=== PATIENT | male | born 1975 | race Two or more races ===

== ENCOUNTER 2022-04-20 11:32 | Outpatient (REF) | payer BC, SELFPAY ==
--- NOTE | ~2022-04-20 | XR_ITS ---
EXAMINATION: XR cervical spine 2V CLINICAL INFORMATION: Pain COMPARISON: None TECHNIQUE: 3 views of the cervical spine were obtained. FINDINGS: The cervical spine is visualized to the level of C6-C7 on the lateral view. Minimal retrolisthesis of C5 on C6. Vertebral body heights are maintained. Mild degenerative disc disease at C5-C6, manifested by loss of disc space height. Lateral masses of C1 are well aligned on C2. Visualized portion of the dens is intact. No prevertebral soft tissue swelling. XR/XR cervical spine 2V IMPRESSION: * Mild spondylosis of the cervical spine, as above detailed. Spondylolisthesis, as above detailed.
== END 2022-04-20 11:33 | disposition home or self-care (01) ==
LOC: HO.HMGCX 11:32
PROVIDERS: PCP Nurse Practitioner Family; Visit Provider Nurse Practitioner Family
DX: M54.2 Cervicalgia (principal)
CPT/HCPCS: 72040

== ENCOUNTER 2022-05-27 07:50 | Outpatient (REF) | payer BC, SELFPAY ==
[2022-05-27 11:25] LABS: MANUAL DIFF FLAG NO
[2022-05-27 11:33] LABS: Appearance Urine Turbid; Color Urine Yellow; Glucose Urine UA Negative (Negative); Leukocyte Esterase Urine Negative (Negative); Nitrite Urine Negative (Negative); PH 5.5 (5.0-9.0); Specific Gravity - Urine 1.025 (1.005-1.025); Urine Blood Negative (Negative); Urine Ketones Negative (Negative); Urine Protein Negative (Neg-Trace)
[2022-05-27 11:52] LABS: Basophils Absolute Auto 0.1 X10*3/uL (0.0-0.2); Basophils Percent Auto 0.9 % (0-2); Eosinophils Absolute Auto 0.3 X10*3/uL (0.0-0.4); Eosinophils Percent Auto 5.1 % (0-4); Hemoglobin 14.8 g/dl (14.0-18.0); Imm Gran Abs Auto 0.01 X10*3/uL (0.00-0.03); Imm Gran Pct Auto 0.2 % (0.0-0.4); Lymphocytes Absolute Auto 2.4 X10*3/uL (1.2-4.9); Mean Corpuscular HGB Conc 33.6 g/dl (31.0-36.0); Mean Corpuscular Hemoglobin 29.7 pg (27.0-33.0); Mean Corpuscular Volume 88.2 fL (80.0-98.0); Mean Platelet Volume 10.1 fL (9.4-12.4); Monocytes Absolute Auto 0.5 X10*3/uL (0.1-1.2); Monocytes Percent Auto 9.1 % (2-11); Neutrophils Absolute Auto 2.4 x10*3/uL (2.0-8.3); Neutrophils Percent Auto 42.7 % (45-73); Platelet Count 306 X10*3/uL (160-400); Red Blood Count 4.99 X10*6/uL (4.60-5.80); Red Cell Distribution Width 12.3 % (11.0-16.0); White Blood Count 5.7 X10*3/uL (4.8-10.8)
[2022-05-27 12:39] LABS: Alanine Aminotransferase 54 U/L (0-40); Albumin Level 4.1 g/dL (3.5-5.0); Alkaline Phosphatase 52 U/L (39-117); Anion Gap 12 (12-20); Aspartate Amino Transferase 28 U/L (5-37); Bilirubin Total 1.1 mg/dL (0.0-1.0); Blood Urea Nitrogen 17 mg/dL (9-16); Calcium 9.1 mg/dL (8.4-10.2); Carbon Dioxide 24 mmol/L (22-29); Chloride 107 mmol/L (96-108); Cholesterol 209 mg/dL; Estimated Glomerular Filt Rate > 60; Glucose Fasting 94 mg/dL (60-99); HDL Cholesterol 51 mg/dL; LDL Cholesterol Calculated 142 mg/dl; Potassium 4.2 mmol/L (3.3-5.1); Sodium 139 mmol/L (135-145); Total Protein 6.9 g/dL (6.5-8.0); Triglycerides 82 mg/dL
== END 2022-05-27 07:51 | disposition home or self-care (01) ==
LOC: HO.HMGCLDS 07:50
PROVIDERS: PCP Nurse Practitioner Family; Visit Provider Nurse Practitioner Family
DX: Z00.00 Encounter for general adult medical examination without abnormal findings (principal); R74.8 Abnormal levels of other serum enzymes
CPT/HCPCS: 36415; 80053; 80061; 81003; 84443; 85025

== ENCOUNTER → 2022-06-24 14:38 | Outpatient (BNVA) | payer BC, SELFPAY | PROVIDERS: PCP Nurse Practitioner Family; Visit Provider Nurse Practitioner Family | DX: Z13.89 Encounter for screening for other disorder (principal) ==

== ENCOUNTER 2022-09-05 12:27 | Day surgery (SDC) | payer BC, MEDICAID, SELFPAY ==
[2022-09-01 10:44] VITALS: BMI 28.4
--- NOTE | 2022-09-02 10:50 | HO.ANESPROP2 ---
Documented by User: Hortencia Arce NP 09/02/22 10:50 HPI - Anesthesia Eval Consult details Narrative: 47yo M for Penile Condylomata Fulguration PMFSH Active Problems Active Problems: All Active Problems (Updated 09/01/22 @ 10:41 by Italia Moses RN) Physical exam (Acute) Genital warts (Acute) Screening for colon cancer (Acute) Cervical pain (neck) (Acute) Elevated liver enzymes (Acute) Past Medical History Medical History (Updated 09/01/22 @ 10:41 by Italia Moses RN) Cervical pain (neck) Genital warts Surgical History Surgical History (Updated 09/01/22 @ 10:44 by Italia Moses RN) Surgical history unknown Social History Social History Housing: Apartment Patient Tobacco Use Status: Former Tobacco user Quit Date: 6 months ago Tobacco use type: Cigarette e-Cigarette/Vaping Use: Never Used Second Hand Smoke Exposure: No Use of substances other than those prescribed or required for medical reasons: No Are you DNR?: No Advance Directives: No Advance Directives Information Provided: Yes service: No Current occupational status: employed Current occupation: [employer] Current occupational exposures/hazards: No Cognitive needs: No Hearing needs: No Vision needs: No Meds Allergies Allergy/AdvReac Type Severity Reaction Status Date / Time No Known Allergies Allergy Verified 06/25/22 23:05 Home Medications Medication Instructions Recorded Confirmed Last Taken Type No Known Home Meds 06/24/22 09/01/22 Unknown History Exam Exam Date and Time: September 02, 2022 1050 Height,Weight and Vital Signs: Height 5 ft 11 in Weight 92.533 kg Pertinent Lab Results Pertinent Lab Results: Laboratory Tests 05/27/22 05/27/22 08:00 08:00 WBC 5.7 Hgb 14.8 Hct 44.0 Plt Count 306 Sodium 139 Potassium 4.2 Chloride 107 Carbon Dioxide 24 BUN 17 H Creatinine 0.82 Assessment and Plan Assessment Anesthesia Assessment: Chart Reviewed Documented by User: Devonte Porras MD 09/05/22 15:53 PMFSH Past Medical History Medical History (Updated 09/01/22 @ 10:41 by Italia Moses RN) Cervical pain (neck) Genital warts Family History Family history of problems with anesthesia: No Surgical History Surgical History (Updated 09/01/22 @ 10:44 by Italia Moses RN) Surgical history unknown History of Problems with Anesthesia: No Social History Social History Housing: Apartment Patient Tobacco Use Status: Former Tobacco user Quit Date: 6 months ago Tobacco use type: Cigarette e-Cigarette/Vaping Use: Never Used Second Hand Smoke Exposure: No Use of substances other than those prescribed or required for medical reasons: No Are you DNR?: No Advance Directives: No Advance Directives Information Provided: Yes service: No Current occupational status: employed Current occupation: [employer] Current occupational exposures/hazards: No Cognitive needs: No Hearing needs: No Vision needs: No Meds Allergies Allergy/AdvReac Type Severity Reaction Status Date / Time No Known Allergies Allergy Verified 06/25/22 23:05 Home Medications Medication Instructions Recorded Confirmed Last Taken Type No Known Home Meds 06/24/22 09/01/22 Unknown History Exam Airway Mallampati Class: II TM Dist: >3cm Neck ROM: Full Heart: ok Lungs: ok Assessment and Plan Assessment Anesthesia Assessment: Anesthesia Plan Discussed Final Anesthetic Review Family History of Problems with Anesthesia: No History of Problems with Anesthesia: No NPO: Yes ASA Class: II Final Preanesthetic Review: No Changes in Pt Med Stat, Meds/Allgs Chart Reviewed, Consent Obtained/Reviewed and Anes Risks/Benef Reviewed Patient Risk: Low Procedure Risk: Low Anesthetic Plan Anesthetic Plan: GA and Agree w/ Assess. and Plan Disposition: Standard PACU
[2022-09-05 13:12] VITALS: BP 143/96; PULSE 84; RESP 18; TEMP 36.1; O2SAT 97
[2022-09-05] MEDS: Lactated Ringers 1,000 ML 100 ML IVCONT (13:24)
--- NOTE | 2022-09-05 15:01 | P.HPSUR_ITS ---
Pre-Procedural Eval Section A Date of Service: 09/05/22 The patient is an INPATIENT: No Changes since office visit: No Cold of Flu in the past 2 weeks, No New Medical Problems, No Changes in Medication and No Patient answered all questions The History & Physical has been completed within 30 days and I have reviewed it.: No Section B Chief Complaint: Anogenital (venereal) warts Details of Present Illness: penile warts Relevant Family History (Specify if Yes): No Relevant Social History: None Present Medications: see Short Stay Collaborative assessment Medical History: No relevant PMH History of Previous Operations: No relevant previous surgery Allergies: Allergies Allergy/AdvReac Type Severity Reaction Status Date / Time No Known Allergies Allergy Verified 06/25/22 23:05 Review of Systems Sugical H&P ROS: Negative: Constitution, Cardiovascular, Respiratory, Neurological, Psychiatric, Hem-Onc, Allergic/Immunologic, Gastrointestinal, Genitourinary, Musculoskeletal, Integumentary, Endocrine and Eyes/Ears/Nose/Throat Exam Surgical H&P Exam: Normal: HEENT, Normal: Heart, Normal: Lungs, Normal: Extremit ies, Normal: Abdomen, Normal: Skin and Normal: Neurological Plan Diagnosis/Plan: Unchanged ( laser of penile lesions) I have reviewed the history and physical and performed a pertinent physical examination on my patient. No changes have occurred unless specified. Time Spent With Patient Time: Total time managing care of this patient today ____ minutes.
[2022-09-05 16:14] VITALS: BP 124/94; PULSE 84; RESP 16; TEMP 36.6; O2SAT 96
[2022-09-05 16:19] VITALS: BP 135/96; PULSE 81; RESP 14; O2SAT 96
[2022-09-05 16:24] VITALS: BP 128/94; PULSE 84; RESP 12; O2SAT 97
[2022-09-05 16:29] VITALS: BP 126/97; PULSE 77; RESP 13; O2SAT 98
[2022-09-05 16:46] VITALS: BP 123/85; PULSE 71; RESP 16; TEMP 36.5; O2SAT 97
--- NOTE | 2022-11-11 12:40 | W.PM.OPN ---
Operative Note Operative Note Date of Service: 09/05/22 Narrative: PreOperative Diagnosis: Genital warts Post Operative Diagnosis: Genital warts Procedure: CO2 laser of 7 lesions up to 12mm on left side of the penis Surgeon: Dr Philip Samaniego Anesthesia: General Indications for procedure: Genital warts on left-sided base of penis Procedure: After informed consent was verified the patient was brought to the operating room and placed in a supine position. Anesthesia was administered per protocol. The patient was prepped and draped in a sterile fashion. Safety pause time-out was performed. Antibiotics being given. Using the CO2 laser the 12 mm lesion in the basal left side of the penis was treated. There were noted to be 6 satellite lesions each up to 4-5 mm. These were all treated as well. Pathology: None Drains:
== END 2022-09-05 17:09 | disposition home or self-care (01) ==
PROVIDERS: PCP Nurse Practitioner Family; Visit Provider Urology
PROC: (CPT 54055; principal; 2022-09-05 14:50)
DX: A63.0 Anogenital (venereal) warts (principal); Z87.891 Personal history of nicotine dependence
CPT/HCPCS: 54057; J3010

== ENCOUNTER → 2022-09-05 12:27 | Outpatient (BNV) | payer BC, SELFPAY | PROVIDERS: PCP Nurse Practitioner Family; Visit Provider Urology | DX: A63.0 Anogenital (venereal) warts (principal) | CPT/HCPCS: 54057 ==

== ENCOUNTER 2022-10-20 10:29 | Outpatient (AMB) | payer BC, SELFPAY ==
--- NOTE | 2022-10-20 10:46 | MHC.OFFVIS ---
Intake Intake Visit Reasons: 6 week (wart removal) Intake Note: Patient is present for Follow Up Urology Med: none Antibiotic Allergy: None Blood Thinner: None Pharmacy: [facility] Allergies No Known Allergies Allergy (Verified 10/20/22 10:47) HPI HPI Comments History of Present Illness Details Artur is a pleasant male. He is a patient Dr. Israel. He is seen for the following urologic conditions - genital warts Postprocedure well-healed Genital warts Prior shaving a general area Had outbreak of 5-7 small to moderate lesions 1 cm lesion at base on left side Underwent laser with good effect Continue to monitor May benefit from topical therapy PFSH Medical History Cervical pain (neck) Genital warts Surgical History Surgical history unknown Social History Housing: Apartment Patient Tobacco Use Status: Former Tobacco user Quit Date: 6 months ago Tobacco use type: Cigarette e-Cigarette/Vaping Use: Never Used Second Hand Smoke Exposure: No service: No Current occupational status: employed Current occupation: [employer] service Current occupational exposures/hazards: No Cognitive needs: No Hearing needs: No Vision needs: No Review of Systems Const Denies chills and Denies fever(s) Card Reports no additional complaints and Denies syncope Resp Denies cough GI Denies abdominal pain and Denies heartburn Reports as per HPI and Denies change in libido Neuro Denies syncope Psych Denies change in libido Endo Denies change in libido Physical Exam Const General: cooperative, healthy appearing, comfortable and no acute distress Orientation/consciousness: patient oriented x3 HEENT Face and sinus: Yes normal facial exam Mouth: moist mucous membranes Neck Neck: Yes normal visual inspection, Yes full ROM and Yes trachea midline Chest Chest palpation & inspection: normal inspection of the chest Resp Effort & Inspection: normal respiratory effort, able to speak in complete sentences and no respiratory distress GI Inspection: Yes normal to inspection Back/Spine/Pelvis Cervical Spine: normal cervical lordosis Thoracic/Lumbar Spine: thoracic and lumbar spine normal to inspection Skin General skin exam: no rashes or lesions noted Neuro General: patient oriented x3, gait normal, tone normal and moves all extremities Extrem General: Yes normal to inspection and Yes capillary refill normal Assessment & Plan Assessment & Plan (1) Genital warts: Code(s): A63.0 - Anogenital (venereal) warts Plan Six month follow-up Patient Instructions: Imaging studies, laboratory and physical exam results were discussed and reviewed in detail. No major barriers to patient understanding were identified. An opportunity to ask questions regarding the treatment plan was provided. All questions were answered. The patient expressed understanding and agreement with the above treatment plan. The patient is aware they should contact our office by phone for worsening of their current condition or the appearance of new urologic symptoms. Compliance is encouraged with any medications and followup testing that is ordered. It is a privilege to participate in the urologic care of your patient. If you have any questions or concerns regarding treatment for the above conditions, or other urologic issues, please do not hesitate to contact me. The office telephone contact is [phone]. This note is constructed using voice recognition software. While every effort has been made to ensure accuracy electronics worker errors may have been included. Yours sincerely, Dr Philip Samaniego MD, [facility] - Urology Providers of Expert, Compassionate Care for the Genitourinary System Coding Level of Care Code Est Pt Level 3 (43285) Diagnoses Genital warts A63.0
== END 2022-10-20 13:25 | disposition home or self-care (01) ==
PROVIDERS: Visit Provider Urology
DX: A63.0 Anogenital (venereal) warts (principal)
CPT/HCPCS: 99213

== ENCOUNTER → 2022-10-20 10:29 | Outpatient (BNVA) | payer BC, SELFPAY | PROVIDERS: Visit Provider Urology ==

== ENCOUNTER 2023-02-14 08:28 | Outpatient (AMB) | payer BC, MEDICAID, SELFPAY ==
--- NOTE | 2023-02-14 08:43 | A.OFFPC_ITS ---
Vital Signs 02/14/23 08:44 Height 5 ft 11 in Weight 218 lb BMI 30.4 BP 122/80 Blood Pressure Location Rt brachial Position Sitting Pulse 78 Pulse Source Pulse Oximeter Pulse Oximetry (%) 97 Oxygen Delivery Method Room Air Intake Visit Reasons: Lower back pain and back neck pain Allergies No Known Allergies Allergy (Verified 02/14/23 08:45) Medication List - Last Reconciled 02/14/23 by RODERICK Aceves losartan 25 mg PO DAILY 90 days Tobacco use date assessed: 04/20/22 HPI Lower back pain and back neck pain HPI Details Pt c/o lower back pain. He does not have any radicular symptoms down his BLE. Pt reports that getting out of bed and lifting makes the pain worse. Will order XR. Pt reports that his blood pressure at home has been elevated. W ill start losartan 25mg. Denies chest pain, shortness of breath, headache, dizziness, and blurred vision. 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 Dalton Gaytan, Monica Martinez, Jacoby Hughes and colleagues, with an educational jenifer from [employer]. Review of Systems Const Reports as per HPI Physical exam (Primary Care) Vital Signs: Last Vital Signs Pulse 78 02/14/23 08:44 BP 122/80 02/14/23 08:44 Pulse Ox 97 02/14/23 08:44 Oxygen Delivery Method Room Air 02/14/23 08:44 BMI result Body Mass Index 30.4 Tobacco/Smoking Status: Tobacco use Status Tobacco use date assessed 04/20/22 02/14/23 08:44 Patient Tobacco Use Status Former Tobacco user 02/14/23 08:44 Tobacco use type Cigarette 02/14/23 08:44 e-Cigarette/Vaping Use Never Used 02/14/23 08:44 Thrive Assessment: Date of Thrive Assessment Date Thrive assessed 04/20/22 02/14/23 08:44 Const General: cooperative Orientation/consciousness: patient oriented x3 Resp Effort & Inspection: normal respiratory effort Auscultation: clear to auscultation bilaterally Cardio Rate: regular rate Rhythm: regular rhythm Heart sounds: S1 normal heart sound present, S2 normal heart sound present and no murmurs Back/Spine/Pelvis Other: lower back pain exacerbated with heel walking, lower back pain also exacerbated with pt in supine position with bilat knee to chest raises and entire BLE raises Neuro Other: + patellar DTRs bilat General: patient oriented x3 Psych Appearance: grossly normal Mental Status: mental status grossly normal Speech and movement: Normal speech and movement present Affect: normal affect Attitude: cooperative Thought process: Normal thought process present Thought content: Normal thought content present Insight: Good insight present (Psych) Judgement: Good judgement present (Psych) Assessment and Plan Assessment & Plan (1) Lower back pain: Code(s): M54.50 - Low back pain, unspecified Plan: XR ordered (2) HTN (hypertension): Code(s): I10 - Essential (primary) hypertension Plan: Starting losartan Plan The patient agreed to the use of a medical care administrator for this encounter. Scribed for RODERICK Antony by Radha Mix medical care administrator, on 02/14/2023 at 09:20 EST. Orders: Orders XR lumbar spine 2-3V Today M54.50 - Low back pain, unspecified Complete Blood Count Auto Diff Today I10 - Essential (primary) hypertension, Z00.00 - Encounter for general adult medical examination without abnormal findings Comprehensive [place]. Panel Fast Today I10 - Essential (primary) hypertension, Z00.00 - Encounter for general adult medical examination without abnormal findings TSH reflex Free T4 Today I10 - Essential (primary) hypertension, Z00.00 - Encounter for general adult medical examination without abnormal findings UA CC w/rflx Micro + Cult Today I10 - Essential (primary) hypertension, Z00.00 - Encounter for general adult medical examination without abnormal findings Lipid Panel Today I10 - Essential (primary) hypertension, Z00.00 - Encounter for general adult medical examination without abnormal findings Medications: New losartan 25 mg PO DAILY 90 days 90 tabs 0RF Coding Level of Care Code Est Pt Level 3 (51141) Diagnoses Lower back pain M54.50 HTN (hypertension) I10
[2023-02-14 08:44] VITALS: BP 122/80; PULSE 78; O2SAT 97; BMI 30.4
== END 2023-02-14 11:40 | disposition home or self-care (01) ==
PROVIDERS: PCP Nurse Practitioner Family; Visit Provider Nurse Practitioner Family
DX: M54.50 Low back pain, unspecified (principal); I10 Essential (primary) hypertension
CPT/HCPCS: 99213

== ENCOUNTER 2023-02-14 09:28 | Outpatient (REF) | payer BC, MEDICAID, SELFPAY ==
--- NOTE | ~2023-02-14 | XR_ITS ---
EXAMINATION: XR LUMBOSACRAL SPINE CLINICAL INFORMATION: Low back pain unspecified. COMPARISON: None available. TECHNIQUE: Three views of the lumbosacral spine. FINDINGS: Mild leftward curvature of the lumbar spine. Degenerative changes on very limited images of the bilateral hips. Facet arthritis at the mid to lower lumbar spine. Degenerative changes with [id number] loss of disc space height and hypertrophic change at L4-L5 and L5-S1. XR/XR lumbar spine 2-3V IMPRESSION: Advanced degenerative changes at L4-L5 and L5-S1.
== END 2023-02-14 09:29 | disposition home or self-care (01) ==
LOC: HO.HMGCX 09:28
PROVIDERS: PCP Nurse Practitioner Family; Visit Provider Nurse Practitioner Family
DX: M54.50 Low back pain, unspecified (principal)
CPT/HCPCS: 72100

== ENCOUNTER 2023-07-17 01:09 | Emergency (ER) | payer BC, SELFPAY ==
--- NOTE | ~2023-07-17 | CT_ITS ---
EXAMINATION: CT ABDOMEN AND PELVIS WITH CONTRAST CLINICAL INFORMATION: Epigastric pain. COMPARISON: None available. TECHNIQUE: Multidetector volumetric images were obtained from the superior aspect of the liver through the pubic symphysis following administration 85 mL of Omnipaque 350 intravenous contrast. Sagittal and coronal reformatted images were obtained on the technologist's workstation. Oral contrast: No This CT examination was performed using dose optimization techniques as appropriate, variously including the following: *Automated exposure control *Adjustment of mA and/or kV according to patient size (this includes techniques or standardized protocols for targeted exams where dose is matched to indication/reason for exam; i.e. extremities or head) *Use of iterative reconstruction technique DLP: 696 mGy-cm FINDINGS: LUNG BASES: The visualized lung bases are unremarkable. LIVER, GALLBLADDER, AND BILIARY TREE: The liver is normal in size, shape, and attenuation. No focal hepatic lesion or biliary ductal dilatation is present. There is a single 2 cm gallstone at the neck of the gallbladder. There is no evidence for gallbladder wall thickening or pericholecystic fluid. PANCREAS: Unremarkable. SPLEEN: Unremarkable. ADRENAL GLANDS: Unremarkable. KIDNEYS AND URETERS: The kidneys are normal in size, shape, and attenuation. No hydronephrosis, hydroureter, or calculi seen. No perinephric stranding. BLADDER: Unremarkable. GASTROINTESTINAL TRACT: The small and large bowel are unremarkable. The appendix is unremarkable. ABDOMINAL WALL: No significant hernia is appreciated. LYMPH NODES: Normal. VASCULAR: Unremarkable. PELVIC VISCERA: Unremarkable. OSSEOUS STRUCTURES: There is moderate L4-L5 and L5-S1 disc degenerative change and mild disc degenerative change throughout the remaining thoracolumbar spine. CT/CT abdomen pelvis w IV con IMPRESSION: There is a single 2 cm gallstone at the neck of the gallbladder. There is no evidence of cholecystitis or biliary ductal dilatation. No acute intra-abdominal process. Fleischner guidelines were followed.
[2023-07-17 01:17] VITALS: BP 141/84; PULSE 72; RESP 24; TEMP 36.1; O2SAT 100; BMI 30.5
--- NOTE | 2023-07-17 01:32 | ED_ITS ---
HPI - Abdominal Pain General Chief Complaint: Abdominal Pain Stated Complaint: stomach pain Time Seen by Provider: 07/17/23 01:32 Source: patient and old records reviewed Mode of arrival: ambulatory Limitations: no limitations History of Present Illness HPI narrative: 47 yo male with PMH of HTN here with c/o epigastric pain and RUQ pain nausea and vomiting x 1 after eating a steak at [employer]. Feels he needs to vomit more but cannot. Pain is getting more severe. Has had increased GERD at this time. Takes pepto bismol at times. No fevers MD elicited complaint: abdominal pain Pertinent past history: none Onset (ago): hour(s) (7pm yesterday ) Pain Consistency: constant Location: epigastric Severity: severe Quality: stabbing and aching Radiation: none Migration to: no migration Exacerbating factors: eating and movement Relieving factors: nothing Associated symptoms: nausea and vomiting Related Data Previous Rx's ?Medication ?Instructions ?Recorded losartan 25 mg tablet 25 mg PO DAILY 90 days #90 tabs 05/18/23 hydrocodone 5 mg-acetaminophen 325 1 tab PO Q6H PRN pain 4 days #14 07/17/23 mg tablet tabs ondansetron 4 mg disintegrating 4 mg PO Q8H PRN nausea and 07/17/23 tablet vomiting #20 tabs Allergies Allergy/AdvReac Type Severity Reaction Status Date / Time No Known Allergies Allergy Verified 07/17/23 01:19 Review of Systems Review of Systems Constitutional : No Weight loss, No Fever, No Chills ENT/Mouth : No sore throat, No Rhinorrhea Eyes: No Swelling, No Redness Cardiovascular : No Chest Pain, No SOB, NoEdema Respiratory : No Cough, No Sputum, No Wheezing Gastrointestinal : Positive Nausea, Positive Vomiting, no Diarrhea, positive abdominal Pain, No Hematochezia, No Melena Genitourinary : No Dysuria, No Urinary Frequency, No Hematuria, No Urgency Musculoskeletal : No joint pain, No Myalgias, No Joint Swelling Skin : No Skin Lesions, No rash Neuro : No Weakness, No Numbness, No Dizziness, No Headache Psych : No Anxiety/Panic, No Depression All other systems reviewed and are negative. [facility] Past Medical History Attestation statement: The following information was validated with the patient. Source: old records reviewed Medical History (Updated 07/17/23 @ 05:01 by Cathi Hodgson DO) HTN (hypertension) Cervical pain (neck) Genital warts Surgical History Surgical history unknown Social History Social History Housing: Apartment Patient Tobacco Use Status: Former Tobacco user Quit Date: 6 months ago Tobacco use type: Cigarette e-Cigarette/Vaping Use: Never Used Second Hand Smoke Exposure: No Advance Directives: No Advance Directives Information Provided: No Do you have a plan to hurt others: No Plan service: No Current occupational status: employed Current occupation: [employer] Current occupational exposures/hazards: No Cognitive needs: No Hearing needs: No Vision needs: No Physical Exam ED Vital Signs: Vital Signs - 24 hr 07/17/23 01:17 Temperature 97.0 F Pulse Rate 72 Respiratory Rate 24 H Blood Pressure 141/84 H Pulse Oximetry 100 Oxygen Delivery Method Room Air BMI result Body Mass Index 30.5 Appearance: Alert. Oriented X3. in pain, anxious mild acute distress. Eyes: Pupils equal, round and reactive to light. ENT: Pharynx normal. Neck: Normal inspection. Neck supple. CVS: Normal heart rate and rhythm. Pulses normal. Respiratory: No respiratory distress. Breath sounds normal. Abdomen: Soft and moderate RUQ and epigastric pain Skin: Skin warm and dry. pale skin color. Normal skin turgor. Extremities: No lower extremity edema. No calf ttp Neuro: Oriented X 3. No motor deficit. No sensory deficit. Medical Decision Making Medical Decision Making [facility] Narrative: 47 yo male with PMH of HTN here with c/o severe epigastric pain and n/v after eating steak tonight no diarrhea - at this time given degree of pain will obtain labs, CT scan for pancreatitis, biliary colic, perf ulcer (low prob) IV anti- emetics, IV morphine for pain ordered Differential Diagnosis Differential Diagnoses: The differential diagnosis associated with the presentation includes gastritis, PUD, pancreatitis, biliary colic Admission/Observation Consideration of admission/observation: Escalation of care including admission/observation considered able to tolerate PO pain improved normal LFTs and bili no pericholecystic fluid will send home with low fat diet - surgery referral Lab Data [facility] Lab Attestation statement: I reviewed the patient's lab results. 07/17/23 01:41 07/17/23 01:41 Labs: Lab Results 07/17/23 Range/Units 01:41 WBC 8.0 (4.8-10.8) X10*3/uL RBC 5.68 (4.60-5.80) X10*6/uL Hgb 17.0 (14.0-18.0) g/dl Hct 49.4 (42.0-52.0) % MCV 87.0 (80.0-98.0) fL MCH 29.9 (27.0-33.0) pg MCHC 34.4 (31.0-36.0) g/dl RDW 13.0 (11.0-16.0) % Plt Count 321 (160-400) X10*3/uL MPV 9.7 (9.4-12.4) fL Immature Gran % (Auto) 0.2 (0.0-0.4) % Neut % (Auto) 53.7 (45-73) % Lymph % (Auto) 33.9 (20-40) % Mcduffie % (Auto) 8.4 (2-11) % Eos % (Auto) 2.9 (0-4) % Baso % (Auto) 0.9 (0-2) % Lymph # (Auto) 2.7 (1.2-4.9) X10*3/uL Mcduffie # (Auto) 0.7 (0.1-1.2) X10*3/uL Eos # (Auto) 0.2 (0.0-0.4) X10*3/uL Baso # (Auto) 0.1 (0.0-0.2) X10*3/uL Abs Immat Gran (auto) 0.02 (0.00-0.03) X10*3/uL Absolute Neuts (auto) 4.3 (2.0-8.3) x10*3/uL Absolute Nucleated RBC 0.000 (0.0-0.012) X10*3/uL Nucleated RBC % (auto) 0.0 (0.0-0.2) /100WBC Sodium 142 (135-145) mmol/L Potassium 3.8 (3.3-5.1) mmol/L Chloride 107 (96-108) mmol/L Carbon Dioxide 24 (22-29) mmol/L Anion Gap 15 (12-20) BUN 15 (9-16) mg/dL Creatinine 0.89 (0.5-1.4) mg/dL Estim Creat Clear Calc 125.8 Estimated GFR > 60 Random Glucose 116 H (60-115) mg/dL Calcium 9.9 D (8.4-10.2) mg/dL Magnesium 2.1 (1.6-2.6) mg/dL Total Bilirubin 0.9 (0.0-1.0) mg/dL Direct Bilirubin 0.3 (0.0-0.5) mg/dL AST 23 (5-37) U/L ALT 36 (0-40) U/L Alkaline Phosphatase 70 (39-117) U/L Total Protein 8.6 H (6.5-8.0) g/dL Albumin 4.6 (3.5-5.0) g/dL Lipase 33 (8-78) U/L Ethyl Alcohol < 10 mg/dL Independent Interpretation I performed an independent interpretation of an: CT Scan (biliary colic) Radiology Impression Discussion of test interpretation with radiology: I have reviewed the radiologist's reading. External Record Review External record reviewed: Outpatient record Prescription Management I considered prescription management with: Pain Medication and Other Medications Administered Discontinued Medications Generic Name Dose Route Start Last Admin Trade Name Freq PRN Reason Stop Dose Admin Diphenhydramine HCl 25 mg 07/17/23 01:39 07/17/23 01:49 Diphenhydramine Hcl 50 Mg/Ml Vial IVPUSH 07/17/23 01:40 25 mg ONCE ONE Administration Sodium Chloride 1,000 mls @ 999 mls/hr 07/17/23 01:45 07/17/23 02:50 Ns IV 07/17/23 02:45 Infused .Q1H1M RONY Infusion Iohexol 85 ml 07/17/23 02:41 07/17/23 02:45 Iohexol 350 Mg/Ml 100 Ml Infus..Btl IV 07/17/23 02:42 85 ml ONCE ONE Administration Ketorolac Tromethamine 15 mg 07/17/23 01:39 07/17/23 01:50 Ketorolac Tromethamine 15 Mg/Ml Vial IVPUSH 07/17/23 01:40 15 mg ONCE ONE Administration Metoclopramide HCl 10 mg 07/17/23 01:39 07/17/23 01:51 Metoclopramide Hcl 10 Mg/2 Ml Vial IVPUSH 07/17/23 01:40 10 mg ONCE ONE Administration Morphine Sulfate 4 mg 07/17/23 01:39 07/17/23 01:49 Morphine Sulfate 4 Mg/Ml Cartridge IVPUSH 07/17/23 01:40 4 mg ONCE ONE Administration Protocol Critical Care Time Critical Care Time Critical Care Time: Yes Total Critical Care Time: 35 Attestation: IV morphine improved pain, repeat assessments, feeling better stable for DC I attest to this time spent taking care of the patient Discharge Plan Discharge Clinical Impression: Biliary colic Abdominal pain Qualifiers: Abdominal location: epigastric Qualified Code(s): R10.13 - Epigastric pain Gastritis Qualifiers: Gastritis type: unspecified gastritis Chronicity: acute Gastritis bleeding: w ithout bleeding Qualified Code(s): K29.00 - Acute gastritis without bleeding Patient Disposition: Home, Self-Care Instructions: Gastritis (ED), Gallstones (ED), Abdominal Pain (ED) Additional Instructions: EAT ALL LOW FAT DIET UNTIL YOU SEE SURGEON THIS INCLUDES GOOD FATS LIKE PEANUT BUTTER eat a bland diet for the next 2 days. drink plenty of fluids and stay hydrated. return for worsening symptoms or concerns RETURN if symptoms persist and worsen Prescriptions: New ondansetron 4 mg tablet,disintegrating 4 mg PO Q8H PRN (Reason: nausea and vomiting) Qty: 20 0RF hydrocodone-acetaminophen 5-325 mg tablet 1 tab PO Q6H PRN (Reason: pain) 4 Days Qty: 14 0RF Rx Instructions: partial fill okay; Partial Fill upon patient request. No Action losartan 25 mg tablet 25 mg PO DAILY 90 Days Qty: 90 1RF Referrals: Jonathan Simmons MD [Physician] - (call to schedule surgery) Stand Alone Forms: Work/School Release Print Language: Russian
[2023-07-17 01:47] LABS: Basophils Absolute Auto 0.1 X10*3/uL (0.0-0.2); Basophils Percent Auto 0.9 % (0-2); Eosinophils Absolute Auto 0.2 X10*3/uL (0.0-0.4); Eosinophils Percent Auto 2.9 % (0-4); Hematocrit 49.4 % (42.0-52.0); Imm Gran Abs Auto 0.02 X10*3/uL (0.00-0.03); Imm Gran Pct Auto 0.2 % (0.0-0.4); Lymphocytes Absolute Auto 2.7 X10*3/uL (1.2-4.9); Lymphocytes Percent Auto 33.9 % (20-40); MANUAL DIFF FLAG NO; Mean Corpuscular HGB Conc 34.4 g/dl (31.0-36.0); Mean Corpuscular Hemoglobin 29.9 pg (27.0-33.0); Mean Platelet Volume 9.7 fL (9.4-12.4); Monocytes Absolute Auto 0.7 X10*3/uL (0.1-1.2); Monocytes Percent Auto 8.4 % (2-11); Neutrophils Absolute Auto 4.3 x10*3/uL (2.0-8.3); Neutrophils Percent Auto 53.7 % (45-73); Platelet Count 321 X10*3/uL (160-400); Red Blood Count 5.68 X10*6/uL (4.60-5.80)
[2023-07-17] MEDS: diphenhydrAMINE HCL 50 MG/ML VIAL 25 MG IVPUSH (01:49)
[2023-07-17] MEDS: Morphine Sulfate 4 MG/ML CARTRIDGE IVPUSH (01:49)
[2023-07-17] MEDS: 0.9 % Sodium Chloride 1,000 ML 999 ML IV (01:49)
[2023-07-17] MEDS: Ketorolac Tromethamine 15 MG/ML VIAL IVPUSH (01:50)
[2023-07-17] MEDS: Metoclopramide HCl 10 MG/2 ML VIAL IVPUSH (01:51)
[2023-07-17 02:08] LABS: Alanine Aminotransferase 36 U/L (0-40); Albumin Level 4.6 g/dL (3.5-5.0); Alkaline Phosphatase 70 U/L (39-117); Anion Gap 15 (12-20); Aspartate Amino Transferase 23 U/L (5-37); Bilirubin Direct 0.3 mg/dL (0.0-0.5); Bilirubin Total 0.9 mg/dL (0.0-1.0); Blood Urea Nitrogen 15 mg/dL (9-16); Calcium 9.9 mg/dL (8.4-10.2); Carbon Dioxide 24 mmol/L (22-29); Chloride 107 mmol/L (96-108); Creatinine Clr Calc Pharmacy 125.8; Estimated Glomerular Filt Rate > 60; Ethanol < 10 mg/dL; Glucose Random 116 mg/dL (60-115); Lipase 33 U/L (8-78); Magnesium 2.1 mg/dL (1.6-2.6); Potassium 3.8 mmol/L (3.3-5.1); Sodium 142 mmol/L (135-145); Total Protein 8.6 g/dL (6.5-8.0)
[2023-07-17] MEDS: iohexoL 350 MG/ML 100 ML INFUS..BTL 85 ML IV (02:45)
[2023-07-17 05:25] VITALS: BP 141/84; PULSE 72; RESP 24; TEMP 36.1; O2SAT 100
== END 2023-07-17 05:26 | disposition home or self-care (01) ==
PROVIDERS: Emergency Provider Emergency Medicine; PCP Nurse Practitioner Family
DX: K80.50 Calculus of bile duct without cholangitis or cholecystitis without obstruction (principal); K29.00 Acute gastritis without bleeding; R10.11 Right upper quadrant pain; R10.13 Epigastric pain; R11.2 Nausea with vomiting, unspecified; Z51.81 Encounter for therapeutic drug level monitoring; Z87.891 Personal history of nicotine dependence; Z79.899 Other long term (current) drug therapy
CPT/HCPCS: 36415; 74177; 80048; 80076; 80307; 83690; 83735; 85025; 96361; 96374; 96375; 99284; J1200; J1885; J2270; J2765; Q9967

== ENCOUNTER 2023-07-24 01:15 | Inpatient (IN) | payer BC, SELFPAY ==
[2023-07-24] VITALS (10 sets, daily range): BP systolic 104–161; BP diastolic 47–90; PULSE 58–89; RESP 16–20; TEMP 36.3–37.1; O2SAT 97–100; BMI 30.4
--- NOTE | ~2023-07-24 | US_ITS ---
EXAMINATION: US ABDOMEN LIMITED CLINICAL INFORMATION: Gallstone with increased pain. COMPARISON: CT 07/17/2023 TECHNIQUE: Real-time imaging of the gallbladder and common bile duct. FINDINGS: There is a gallstone at the gallbladder neck measuring 1.8 cm in diameter which appears impacted. Mild gallbladder wall thickening to 0.4 cm. Per technologist report, right upper quadrant tenderness was reported during the exam. Echogenic bile is also noted in the gallbladder. Common bile duct appears nondilated, measuring 0.4 cm in diameter. No free fluid is seen. US/US abdomen limited IMPRESSION: Impacted gallstone at the gallbladder neck, with mild gallbladder wall thickening and right upper quadrant tenderness. Findings are suspicious for acute cholecystitis in the proper clinical setting.
[2023-07-24 02:02] LABS: Hematocrit 50.1 % (42.0-52.0); Hemoglobin 17.1 g/dl (14.0-18.0); Mean Corpuscular HGB Conc 34.1 g/dl (31.0-36.0); Mean Corpuscular Hemoglobin 29.6 pg (27.0-33.0); Mean Corpuscular Volume 86.8 fL (80.0-98.0); Mean Platelet Volume 9.5 fL (9.4-12.4); Platelet Count 302 X10*3/uL (160-400); Red Blood Count 5.77 X10*6/uL (4.60-5.80); Red Cell Distribution Width 12.4 % (11.0-16.0); White Blood Count 9.5 X10*3/uL (4.8-10.8)
[2023-07-24 02:17] LABS: Alanine Aminotransferase 33 U/L (0-40); Albumin Level 4.5 g/dL (3.5-5.0); Alkaline Phosphatase 72 U/L (39-117); Anion Gap 17 (12-20); Aspartate Amino Transferase 22 U/L (5-37); Blood Urea Nitrogen 16 mg/dL (9-16); Calcium 9.9 mg/dL (8.4-10.2); Carbon Dioxide 25 mmol/L (22-29); Chloride 105 mmol/L (96-108); Creatinine Clr Calc Pharmacy 127.1; Estimated Glomerular Filt Rate > 60; Glucose Random 116 mg/dL (60-115); Lipase 31 U/L (8-78); Potassium 4.1 mmol/L (3.3-5.1); Sodium 143 mmol/L (135-145); Total Protein 8.3 g/dL (6.5-8.0)
--- NOTE | 2023-07-24 02:27 | MHC.EDTECH ---
Assumed care at 23:10
--- NOTE | 2023-07-24 02:29 | MHC.EDTECH ---
Assumed care at 02:30
--- NOTE | 2023-07-24 04:05 | ED.ABDPAIN ---
HPI - Abdominal Pain General Chief Complaint: Abdominal Pain Stated Complaint: gallstones/abdominal pain Time Seen by Provider: 07/24/23 04:05 Source: patient Mode of arrival: ambulatory Limitations: no limitations History of Present Illness HPI narrative: Patient with history of gallstone was seen here on 07/[address] scan done which showed 2 cm gallstone at the neck of the bladder patient was doing much better for last 4 days since last night started having the pain again took the pain medication still having the pain with slight nausea no vomiting patient's plan to see surgeon tomorrow no fever no chills Related Data Previous Rx's ?Medication ?Instructions ?Recorded losartan 25 mg tablet 25 mg PO DAILY 90 days #90 tabs 05/18/23 hydrocodone 5 mg-acetaminophen 325 1 tab PO Q6H PRN pain 4 days #14 07/17/23 mg tablet tabs ondansetron 4 mg disintegrating 4 mg PO Q8H PRN nausea and 07/17/23 tablet vomiting #20 tabs Allergies Allergy/AdvReac Type Severity Reaction Status Date / Time No Known Allergies Allergy Verified 07/24/23 01:32 Review of Systems Review of Systems Yes all other systems are reviewed and are negative PMF Past Medical History Medical History HTN (hypertension) Cervical pain (neck) Genital warts Surgical History Surgical history unknown Social History Social History Housing: Apartment Patient Tobacco Use Status: Former Tobacco user Quit Date: 6 months ago Tobacco use type: Cigarette e-Cigarette/Vaping Use: Never Used Second Hand Smoke Exposure: No Advance Directives: No Advance Directives Information Provided: No Do you have a plan to hurt others: No Plan service: No Current occupational status: employed Current occupation: [employer] Current occupational exposures/hazards: No Cognitive needs: No Hearing needs: No Vision needs: No Physical Exam ED Vital Signs: Vital Signs - 24 hr 07/24/23 01:31 07/24/23 03:40 07/24/23 06:00 Temperature 98.0 F 98.4 F 98.0 F Pulse Rate 59 72 82 Respiratory Rate 18 18 20 Blood Pressure 161/89 H 142/86 H 104/59 L Pulse Oximetry 99 97 100 Oxygen Delivery Method Room Air Room Air Room Air BMI result Body Mass Index 30.4 Appearance: Alert. Oriented X3. No acute distress. Eyes: No pallor or icterus ENT: Pharynx normal. Oral Mucosa moist Neck: Normal inspection. Neck supple. CVS: Normal heart rate and rhythm. Pulses normal. Respiratory: No respiratory distress. Equal air entry bilateral, no wheezing/rales/rhonchi Abdomen: Soft , tenderness in epigastric and right upper quadrant with guarding no rebound tenderness Valencia sign positive Bowel sounds are present, no mass palpable, no CVA tenderness Skin: Skin warm and dry. Normal skin color. Normal skin turgor. Extremities: No lower extremity edema. No calf tenderness Neuro: Oriented X 3. Medical Decision Making Medical Decision Making [facility] Narrative: Patient with 2 cm gallstone which is impacted in the gallbladder neck labs are stable does show slight thickening of the gallbladder wall patient does have pain case discussed surgeon Dr. Garrison will evaluate the patient in ER for possible surgery patient is feeling much better after pain medications Differential Diagnosis Differential Diagnoses: The differential diagnosis associated with the presentation includes Cholecystitis/pancreatitis/gastritis Admission/Observation Consideration of admission/observation: Escalation of care including admission/observation considered Consult Healthcare Provider Management of the patient was discussed with: Infusion Therapy Nurse Dr. Garrison surgeon will evaluate the patient in the ER and decide Lab Data [facility] Lab Attestation statement: I reviewed the patient's lab results. 07/24/23 01:57 07/24/23 01:57 Labs: Lab Results 07/24/23 Range/Units 01:57 WBC 9.5 (4.8-10.8) X10*3/uL RBC 5.77 (4.60-5.80) X10*6/uL Hgb 17.1 (14.0-18.0) g/dl Hct 50.1 (42.0-52.0) % MCV 86.8 (80.0-98.0) fL MCH 29.6 (27.0-33.0) pg MCHC 34.1 (31.0-36.0) g/dl RDW 12.4 (11.0-16.0) % Plt Count 302 (160-400) X10*3/uL MPV 9.5 (9.4-12.4) fL Absolute Nucleated RBC 0.000 (0.0-0.012) X10*3/uL Nucleated RBC % (auto) 0.0 (0.0-0.2) /100WBC Sodium 143 (135-145) mmol/L Potassium 4.1 (3.3-5.1) mmol/L Chloride 105 (96-108) mmol/L Carbon Dioxide 25 (22-29) mmol/L Anion Gap 17 (12-20) BUN 16 (9-16) mg/dL Creatinine 0.88 (0.5-1.4) mg/dL Estim Creat Clear Calc 127.1 Estimated GFR > 60 Random Glucose 116 H (60-115) mg/dL Calcium 9.9 (8.4-10.2) mg/dL Total Bilirubin 1.0 (0.0-1.0) mg/dL AST 22 (5-37) U/L ALT 33 (0-40) U/L Alkaline Phosphatase 72 (39-117) U/L Total Protein 8.3 H (6.5-8.0) g/dL Albumin 4.5 (3.5-5.0) g/dL Lipase 31 (8-78) U/L Independent Interpretation I performed an independent interpretation of an: Ultrasound Interpretation: Patient with impacted 2 cm gallstone Radiology Impression Discussion of test interpretation with radiology: I have reviewed the radiologist's reading. Radiologist Impression: RDER #: [id number] US/US abdomen limited IMPRESSION: Impacted gallstone at the gallbladder neck, with mild gallbladder wall thickening and right upper quadrant tenderness. Findings are suspicious for acute cholecystitis in the proper clinical setting. Medications Administered Discontinued Medications Generic Name Dose Route Start Last Admin Trade Name Freq PRN Reason Stop Dose Admin Sodium Chloride 1,000 mls @ 999 mls/hr 07/24/23 04:14 07/24/23 05:30 Ns IV 07/24/23 05:14 Infused .Q1H1M ONE Infusion Morphine Sulfate 4 mg 07/24/23 04:14 07/24/23 04:30 Morphine Sulfate 4 Mg/Ml Cartridge IVPUSH 07/24/23 04:15 4 mg ONCE ONE Administration Protocol Ondansetron HCl 4 mg 07/24/23 04:14 07/24/23 04:29 Ondansetron Hcl 4 Mg/2 Ml Vial IVPUSH 07/24/23 04:15 4 mg ONCE ONE Administration Discharge Plan Discharge Clinical Impression: Cholelithiasis and acute cholecystitis with obstruction Patient Disposition: Still a Patient Prescriptions: No Action losartan 25 mg tablet 25 mg PO DAILY 90 Days Qty: 90 1RF ondansetron 4 mg tablet,disintegrating 4 mg PO Q8H PRN (Reason: nausea and vomiting) Qty: 20 0RF hydrocodone-acetaminophen 5-325 mg tablet 1 tab PO Q6H PRN (Reason: pain) 4 Days Qty: 14 0RF Rx Instructions: partial fill okay; Partial Fill upon patient request. Print Language: Mohawk
[2023-07-24] MEDS: ondansetron HCL 4 MG/2 ML VIAL IVPUSH (04:29)
[2023-07-24] MEDS: 0.9 % Sodium Chloride 1,000 ML 999 ML IV (04:29)
[2023-07-24] MEDS: Morphine Sulfate 4 MG/ML CARTRIDGE IVPUSH (04:30)
--- NOTE | 2023-07-24 07:48 | PM.HPGS ---
History of Present Illness History of Present Illness Date of Service: 07/28/23 Chief complaint: acute cholecysitits Narrative: Artur Fowler is a 47 year old male here in the ER because of right upper quadrant pain. He was in the ER as well last 07/17/2023 because of the same problem. He underwent a CAT scan showing a gallstone in the without cholecystitis. He says that the past week, he has had a few episodes as well. He had been taking pain medications prescribed to him but he had ran out of this. He had another episode last night and because of this he came to the emergency room again. He denies any nausea or vomiting He denies other significant medical issues. He has hypertension. He says he currently has mild pain. Review of Systems Constitutional: Constitutional: Denies chills and Denies fever(s) Cardiovascular: Cardiovascular: Denies chest pain, Denies dyspnea and Denies dyspnea on exertion Respiratory: Respiratory: Denies cough, Denies dyspnea and Denies dyspnea on exertion Gastrointestinal: Gastrointestinal: Denies hematochezia and Denies change in bowel habits Genitourinary: Genitourinary: Denies hematuria and Denies difficulty urinating Musculoskeletal: Musculoskeletal: Denies back pain and Denies limited range of motion Neurologic: Denies focal weakness and Denies convulsions Psychiatric: Psychiatric: Denies depression and Denies mood swings PMFSH Past Medical History Medical History (Updated 07/24/23 @ 07:51 by Americo Garrison MD) Acute cholecystitis HTN (hypertension) Cervical pain (neck) Genital warts Surgical History Surgical History Surgical history unknown Social History Social History Housing: Apartment Comment: COUNTS CORRECT Patient Tobacco Use Status: Former Tobacco user Quit Date: 6 months ago Tobacco use type: Cigarette e-Cigarette/Vaping Use: Never Used Second Hand Smoke Exposure: No service: No Current occupational status: employed Current occupation: [employer] Current occupational exposures/hazards: No Cognitive needs: No Hearing needs: No Vision needs: No Meds Allergies Allergy/AdvReac Type Severity Reaction Status Date / Time No Known Allergies Allergy Verified 07/24/23 01:32 Physical Exam Vital Signs: Vital Signs: Last Vital Signs Temp 98.0 F 07/24/23 06:00 Pulse 82 07/24/23 06:00 Resp 20 07/24/23 06:00 BP 104/59 L 07/24/23 06:00 Pulse Ox 100 07/24/23 06:00 O2 Del Method Room Air 07/24/23 06:00 BMI result Body Mass Index 30.4 Const: General: comfortable and no acute distress Orientation/consciousness: patient oriented x3 Eyes: Other: Nonicteric sclerae Neck: Neck: Yes no lymphadenopathy Resp: Auscultation: clear to auscultation bilaterally Cardio: Rhythm: regular rhythm GI: Other: Mild tenderness on right upper quadrant Palpation (GI): Soft to palpation, nontender and no guarding Neuro: General: patient oriented x3 Results Results Labs: Short CBC 07/24/23 Range/Units 01:57 WBC 9.5 (4.8-10.8) X10*3/uL Hgb 17.1 (14.0-18.0) g/dl Hct 50.1 (42.0-52.0) % Plt Count 302 (160-400) X10*3/uL BMP 07/24/23 01:57 Sodium 143 Potassium 4.1 Chloride 105 Carbon Dioxide 25 BUN 16 Creatinine 0.88 Calcium 9.9 Liver Function 07/24/23 Range/Units 01:57 Total Bilirubin 1.0 (0.0-1.0) mg/dL AST 22 (5-37) U/L ALT 33 (0-40) U/L Alkaline Phosphatase 72 (39-117) U/L Albumin 4.5 (3.5-5.0) g/dL Abdomen CT scan report/results: report reviewed and image reviewed CT scan - pelvis: report reviewed and image reviewed Abdominal ultrasound report/results: report reviewed and image reviewed Additional studies: Laboratory Results WBC 9.5 X10*3/uL (4.8-10.8) 07/24/23 01:57 RBC 5.77 X10*6/uL (4.60-5.80) 07/24/23 01:57 Hgb 17.1 g/dl (14.0-18.0) 07/24/23 01:57 Hct 50.1 % (42.0-52.0) 07/24/23 01:57 MCV 86.8 fL (80.0-98.0) 07/24/23 01:57 MCH 29.6 pg (27.0-33.0) 07/24/23 01:57 MCHC 34.1 g/dl (31.0-36.0) 07/24/23 01:57 RDW 12.4 % (11.0-16.0) 07/24/23 01:57 Plt Count 302 X10*3/uL (160-400) 07/24/23 01:57 MPV 9.5 fL (9.4-12.4) 07/24/23 01:57 Absolute Nucleated RBC 0.000 X10*3/uL (0.0-0.012) 07/24/23 01:57 Nucleated RBC % (auto) 0.0 /100WBC (0.0-0.2) 07/24/23 01:57 Sodium 143 mmol/L (135-145) 07/24/23 01:57 Potassium 4.1 mmol/L (3.3-5.1) 07/24/23 01:57 Chloride 105 mmol/L (96-108) 07/24/23 01:57 Carbon Dioxide 25 mmol/L (22-29) 07/24/23 01:57 Anion Gap 17 (12-20) 07/24/23 01:57 BUN 16 mg/dL (9-16) 07/24/23 01:57 Creatinine 0.88 mg/dL (0.5-1.4) 07/24/23 01:57 Estim Creat Clear Calc 127.1 07/24/23 01:57 Estimated GFR > 60 07/24/23 01:57 Random Glucose 116 mg/dL (60-115) H 07/24/23 01:57 Calcium 9.9 mg/dL (8.4-10.2) 07/24/23 01:57 Total Bilirubin 1.0 mg/dL (0.0-1.0) 07/24/23 01:57 AST 22 U/L (5-37) 07/24/23 01:57 ALT 33 U/L (0-40) 07/24/23 01:57 Alkaline Phosphatase 72 U/L (39-117) 07/24/23 01:57 Total Protein 8.3 g/dL (6.5-8.0) H 07/24/23 01:57 Albumin 4.5 g/dL (3.5-5.0) 07/24/23 01:57 Lipase 31 U/L (8-78) 07/24/23 01:57 Impressions Abdomen Ultrasound 07/24/23 04:40 IMPRESSION: Impacted gallstone at the gallbladder neck, with mild gallbladder wall thickening and right upper quadrant tenderness. Findings are suspicious for acute cholecystitis in the proper clinical setting. Assessment and Plan (1) Acute cholecystitis: Status: Acute He has had periodic right upper quadrant pain the past week. He had an ultrasound again this morning showing a gallstone in the neck of the gallbladder, with mild gallbladder wall thickening. He has some tenderness suggestive of acute cholecystitis. I therefore explained to him the option of proceeding with cholecystectomy. I discussed the technique of laparoscopic cholecystectomy and possible open cholecystectomy. I reviewed the risks including but not limited to bleeding, infections, injury to other organs including bowel, liver, the bile ducts, bile leak, inherent risks of anesthesia, as well as the benefits and alternatives. He wants to proceed . We will put him on the OR schedule either today or tomorrow. His LFTs are normal. He has a very benign exam and appears to be he would dynamically stable and nontoxic looking. Quality Stroke Does the patient have a stroke diagnosis?: No VTE Prior VTE?: No VTE Risk Level:: Medical - moderate - high VTE Device Contraindication: N/A - Device Ordered VTE Drug Contraindication: N/A - Med Ordered Procedures Date of Service Date of Service: 07/28/23
[2023-07-24] MEDS: Dextrose 5 % and 0.45 % NaCl 1,000 ML 80 ML IVCONT ×2 (08:24→21:15)
[2023-07-24] MEDS: Losartan Potassium 25 MG TABLET PO (08:25)
[2023-07-24] MEDS: Morphine Sulfate 4 MG/ML CARTRIDGE 3 MG IVPUSH (08:25)
--- NOTE | 2023-07-24 09:17 | PC.NURSE ---
pt verbalizing pain level decreased to a 2/10 post medication administration. pt resting comfortably in bed in no apparent distress w/ lights dimmed. no sob/wob noted. respirations even and unlabored. plan of care ongoing. call bird placed within reach.
--- NOTE | 2023-07-24 11:25 | PC.NURSE ---
ASSUMED CARE OF THIS PT AT 1100, DENIES ANY PAIN, NAUSEA AT THIS TIME. MED REC COMPLETED. PT AWARE OF PLAN FOR SURGERY TOMORROW, CLEAR LIQUIDS TILL MIDNIGHT. PT [facility].
--- NOTE | 2023-07-24 11:29 | PC.NURSE ---
RN TO RN REPORT RECEIVED FROM ADRIANA. PT TO BE TRANSFERRED TO THE OVERFLOW UNIT.
--- NOTE | 2023-07-24 11:39 | PC.NURSE ---
PT TRANSFERRED TO OVERFLOW BED 5.
--- NOTE | 2023-07-24 12:14 | PHA.MEDREC ---
Pharmacy Consult ? Medication Reconciliation Pharmacy has completed the medication reconciliation. Spoke with patient, he confirmed all medications on pharmacy claims.
--- NOTE | 2023-07-24 12:56 | PC.NURSE ---
FAMILY MEMBER AT BEDSIDE (FEMALE).
--- NOTE | 2023-07-24 13:30 | PC.NURSE ---
DR. BRUMFIELD AT BEDSIDE, PT AWARE OF PLAN OF CARE.
--- NOTE | 2023-07-24 18:00 | PC.NURSE ---
this rn assumed care of pt @ 1500. pt calm and cooperative, independent, ambulates independently to restroom and repositions self back to bed no new needs per patient
[2023-07-25] VITALS (19 sets, daily range): BP systolic 107–158; BP diastolic 78–96; PULSE 58–72; RESP 14–21; TEMP 36.8–36.9; O2SAT 95–99
[2023-07-25] MEDS: 0.9 % Sodium Chloride Flush 3 ML SYRINGE IVFLUSH (00:17)
--- NOTE | 2023-07-25 10:31 | MHC.CM.PN ---
Attempted to meet with patient in regards to discharge planning. Patient transferred to Same Day Surgery. Will attempt to meet again. Continue to monitor for d/c needs.
--- NOTE | 2023-07-25 11:04 | P.CONAN_ITS ---
HPI - Anesthesia Eval Consult details Narrative: 47 yo M admitted with acute cholecystitis PMFSH Active Problems Active Problems: All Active Problems Acute cholecystitis (Acute) Cholelithiasis and acute cholecystitis with obstruction (Acute) Lower back pain (Acute) Physical exam (Acute) Genital warts (Acute) Screening for colon cancer (Acute) Cervical pain (neck) (Acute) Elevated liver enzymes (Acute) Past Medical History Medical History (Updated 07/24/23 @ 07:51 by Americo Garrison MD) Acute cholecystitis HTN (hypertension) Cervical pain (neck) Genital warts Family History Family history of problems with anesthesia: No Surgical History Surgical History Surgical history unknown History of Problems with Anesthesia: No Social History Social History Housing: Apartment Patient Tobacco Use Status: Former Tobacco user Quit Date: 6 months ago Tobacco use type: Cigarette e-Cigarette/Vaping Use: Never Used Second Hand Smoke Exposure: No Use of substances other than those prescribed or required for medical reasons: No Are you DNR?: No Advance Directives: No Advance Directives Information Provided: No Do you have a plan to hurt others: No Plan Nutrition Risks: No Nutritional Risk service: No Current occupational status: employed Current occupation: [employer] Current occupational exposures/hazards: No Cognitive needs: No Hearing needs: No Vision needs: No Meds Allergies Allergy/AdvReac Type Severity Reaction Status Date / Time No Known Allergies Allergy Verified 07/24/23 01:32 Active Medications: Current Medications Heparin Sodium (Porcine) (Heparin Sodium,Porcine 5,000 Unit/Ml Vial) 5,000 unit SUBCUT Q8H RONY Dextrose/Sodium Chloride (D51/2ns) 1,000 mls @ 80 mls/hr IVCONT .[id number] RONY Last Admin: 07/24/23 21:15 Dose: 80 mls/hr Cefotetan Disodium 2 gm/ (Sodium Chloride) 50 mls @ 100 mls/hr IV PREOP ONE Stop: 07/25/23 14:37 Cefotetan Disodium 2 gm/ (Sodium Chloride) 50 mls @ 100 mls/hr IV PREOP ONE Stop: 07/25/23 11:28 Losartan Potassium (Losartan Potassium 25 Mg Tablet) 25 mg PO DAILY [facility]; Protocol Last Admin: 07/25/23 08:15 Dose: Not Given Morphine Sulfate (Morphine Sulfate 4 Mg/Ml Cartridge) 3 mg IVPUSH Q4H PRN; Protocol PRN Reason: Pain, Severe (Pain Scale 7-10) Last Admin: 07/24/23 08:25 Dose: 3 mg Ondansetron HCl (Ondansetron Hcl 4 Mg/2 Ml Vial) 4 mg IVPUSH Q8H PRN PRN Reason: Nausea and Vomiting Oxycodone HCl (Oxycodone Hcl Immed Release 5 Mg Tablet) 5 mg PO Q6H PRN PRN Reason: Pain, Moderate(Pain Scale 4-6) Sodium Chloride (0.9 % Sodium Chloride Flush 3 Ml Syringe) 3 ml IVFLUSH QSHIFT [facility] Last Admin: 07/25/23 08:15 Dose: Not Given Exam Exam Date and Time: July 25, 2023 1100 Height,Weight and Vital Signs: Height 5 ft 11 in Weight 99 kg Last Vital Signs Temp 98.2 F 07/25/23 10:05 Pulse 67 07/25/23 10:05 Resp 16 07/25/23 10:05 BP 137/91 H 07/25/23 10:05 Pulse Ox 99 07/25/23 10:05 O2 Del Method Room Air 07/25/23 10:05 Pertinent Lab Results Pertinent Lab Results: Laboratory Tests 07/24/23 01:57 WBC 9.5 RBC 5.77 Hgb 17.1 Hct 50.1 MCV 86.8 MCH 29.6 MCHC 34.1 RDW 12.4 Plt Count 302 MPV 9.5 Absolute Nucleated RBC 0.000 Nucleated RBC % (auto) 0.0 Sodium 143 Potassium 4.1 Chloride 105 Carbon Dioxide 25 Anion Gap 17 BUN 16 Creatinine 0.88 Estim Creat Clear Calc 127.1 Estimated GFR > 60 Random Glucose 116 H Calcium 9.9 Total Bilirubin 1.0 AST 22 ALT 33 Alkaline Phosphatase 72 Total Protein 8.3 H Albumin 4.5 Lipase 31 Airway Mallampati Class: II TM Dist: >3cm Neck ROM: Full Loose/Missing/Broken Teeth: No (patient denies any loose or broken teeth) Heart: S1S2 Lungs: CTAB Assessment and Plan Assessment Anesthesia Assessment: Anesthesia Plan Discussed and Chart Reviewed Final Anesthetic Review Family History of Problems with Anesthesia: No History of Problems with Anesthesia: No NPO: Yes ASA Class: II Final Preanesthetic Review: No Changes in Pt Med Stat, Meds/Allgs Chart Reviewed, Consent Obtained/Reviewed and Anes Risks/Benef Reviewed Patient Risk: Low Procedure Risk: Low Anesthetic Plan Anesthetic Plan: GA and Agree w/ Assess. and Plan Disposition: Standard PACU
--- NOTE | 2023-07-25 12:29 | PM.DS ---
DS: Providers Provider Date of Service: 07/25/23 Date of admission: 07/24/23 07:53 Date of discharge: 07/25/23 [facility] Attending physician on admission: Americo Garrison Attending physician on discharge: Americo Garrison DS: Diagnosis Discharge Diagnosis (1) Acute cholecystitis: Status: Acute DS: Summary Hospital Course Hospital Course: HPI AT ADMISSION: Artur Fowler is a 47 year old male here in the ER because of right upper quadrant pain. He was in the ER as well last 07/17/2023 because of the same problem. He underwent a CAT scan showing a gallstone in the without cholecystitis. He says that the past week, he has had a few episodes as well. He had been taking pain medications prescribed to him but he had ran out of this. He had another episode last night and because of this he came to the emergency room again. He denies any nausea or vomiting. He denies other significant medical issues. He has hypertension. He says he currently has mild pain. He had an ultrasound again this morning showing a gallstone in the neck of the gallbladder, with mild gallbladder wall thickening. He has some tenderness suggestive of acute cholecystitis. HOSPITAL COURSE: He was admitted to the surgical service for further treatment of the acute cholecystitis. Treatment options were discussed and he wanted to proceed with surgery. He was added onto the OR schedule for that day. On 07/26/23, laparoscopic cholecystectomy was performed by Dr. Garrison without complication. The patient tolerated the procedure well. He felt well later in the day with good pain control and was tolerating a solid diet without nausea or vomiting. His abdomen was benign with appropriate post op tenderness and c/d/i dressings. He felt ready for discharge. He was discharged to home on 07/25/23 in stable condition. He is to follow up with Dr. Garrison in the office in 2 weeks. Status at Discharge Functional status at discharge: independent ambulation Overall status at discharge: patient is progressing back to baseline Time Attestation Discharge Coordination Time (in mins): 30 Quality: Safe Use of Opioids Does Pt have an Active Cancer Diagnosis on the Problem List?: No Quality: Stroke Does the patient have a stroke diagnosis?: No Physical Exam Vital Signs: Vital Signs: Last Vital Signs Temp 98.2 F 07/25/23 16:35 Pulse 72 07/25/23 16:35 Resp 20 07/25/23 16:35 BP 141/92 H 07/25/23 16:35 Pulse Ox 95 07/25/23 16:35 O2 Del Method Room Air 07/25/23 16:35 O2 Flow Rate 2 07/25/23 14:04 FiO2 40 07/25/23 13:55 BMI result Body Mass Index 30.4 Const: General: comfortable, no acute distress and alert Resp: Effort & Inspection: normal respiratory effort GI: Inspection: No distended and Yes incision (dressings c/d/i) Palpation (GI): Soft to palpation Skin: General skin exam: no rashes or lesions noted and no jaundice DS: Data Data Completed and Pending Completed studies during hospitalization [Text1]: Pending at discharge 07/25/23 12:41 Surgical [PTH] Routine Procedures Resection of Gallbladder, Percutaneous Endoscopic Approach (07/24/23) Discharge Plan Discharge Anticipated Discharge Date/Time: 07/25/23 17:44 Patient Disposition: Home, Self-Care Discharge Diagnosis: Acute cholecystitis Referrals: Jonathan Elizabeth FNP- [Primary Care Provider] - 1 Week Americo Garrison MD [Physician] - 2 Weeks Discharge Medications: New ibuprofen 600 mg tablet 600 mg PO Q6H PRN (Reason: pain) Qty: 30 0RF oxycodone-acetaminophen [Percocet] 5-325 mg tablet 1 tab PO Q4-6H PRN (Reason: pain) Qty: 25 0RF Rx Instructions: Partial Fill upon patient request. Continued losartan 25 mg tablet 25 mg PO DAILY 90 Days Qty: 90 1RF ondansetron 4 mg tablet,disintegrating 4 mg PO Q8H PRN (Reason: nausea and vomiting) Qty: 20 0RF Discontinued hydrocodone-acetaminophen 5-325 mg tablet 1 tab PO Q6H PRN (Reason: pain) 4 Days Qty: 14 0RF Rx Instructions: partial fill okay; Partial Fill upon patient request. Discharge Orders: Discharge Order (Routine); Ordered 07/25/23 Ordered By: Americo Garrison Diet: Advance to usual diet Activity on Discharge: No heavy lifting Stand Alone Forms: Patient Portal Discharge page Print Language: Kuwaiti Activity Restrictions/Additional Instructions: If the incision area is tender, you may apply an ice pack for short intervals (No more than 20 minutes on, followed by at least 20 minutes off). Do not apply heat. Do not use creams, lotions, or topical antibiotics. These can cause infection or allergic reaction. Ok to shower 24 hours after your surgery. Remove bandaids in 2 days and replace. You have steri strips (small white cloth strips) covering your incision- these will fall off ~1 week. Follow up in office with Dr. Garrison in 2 weeks. ([phone]) No heavy lifting (>10-20lbs) or strenuous activity! Call Your Doctor If: -Your temperature exceeds 101.5? F -You experience excessive pain or swelling -You have an unexpected reaction to medication -You have excessive bleeding -You experience continued vomiting/nausea -Your incision begins to separate -Your incision shows signs of infection such as increased redness, swelling, excessive pain, drainage (light blood or clear fluid is normal) or heat Care Plan Goals: Returned to baseline health Health Concerns: Hypertension Pain control status post cholecystectomy Plan of Treatment: Oral pain medications Follow-up in the office Assessment: Doing very well postop Discharge Date/Time: 07/25/23 16:56
--- NOTE | 2023-07-25 12:34 | P.OP_ITS ---
Operative Note Operative Note Date of Service: 07/25/23 Narrative: Preop diagnosis: Acute calculous cholecystitis Postop diagnosis: The same Procedure: Laparoscopic cholecystectomy Surgeon: Americo Garrison MD sociology research assistant: MER Nunez The patient is a 47-year-old male gallstones, admitted with right upper quadrant pain and tenderness with an ultrasound suggestive of acute cholecystitis. He understood the technique of the planned procedure. He was aware of the risks, benefits, and alternatives. He had been in the ER as well last week so he wanted to proceed with cholecystectomy. He was brought to the operating room. He was placed supine under general anes thesia via endotracheal tube. The abdomen was prepped and draped in the usual sterile fashion. A surgical time-out was done. The patient received Cefotan 2 g IV preoperatively. I made a short incision on the supraumbilical margin using a blade 15. This was carried down through the full-thickness of the skin and subcutaneous fat. The patient was noted to have very thick subcutaneous fat that we had to go through until we reached the fascia. The fascia incised. The peritoneum was entered. Through this incision Alvarez port was introduced. Pneumoperitoneum was introduced to a pressure of 15 mm Hg. From here on the rest of the procedure was done under vision with the 10 mm plan laparoscope. With laparoscopic visualization, I inserted a 5/12 minimal port in the epigastric area below the subcostal margin. Two 5 mm ports introduced below the subcostal margin along the anterior axillary line and the midclavicular line. Graspers were placed through these working ports. The patient was placed in head up and [id number] position. Examination of the subhepatic space revealed gallbladder to be erythematous consistent with the acute cystitis. I was able to visualize the fundus and I was able to apply a grasper on this. This was used to retract the gallbladder cephalad. By doing so was able to see the distal bladder. I did do some careful dissection with the [place] dissector, as well as the tip of the suction freight elevator erector to release some thin adhesions surrounding the neck. By doing so was able to visualize what appeared to be the cystic duct. We carefully dissected the cystic duct circumferentially using the [place] dissector until was able to confirm its confluence with the neck of the gallbladder. By doing so was able to achieve a critical view of the hepatocystic triangle. There was note of the lymph node in the area along with what appeared to be a cystic artery. With confirmation of the confluence of the cystic duct and the neck, I proceeded to then apply clips cystic duct with 2 clips being applied distally. The cystic duct was transected between clips with Endo scissors. The cystic artery was noted to have some oozing at this time so I carefully dissected this and applied clips as well. I transected the cystic artery between clips with Endo scissors. There were 2 clips in the distal cystic artery With traction on the gallbladder away from the liver bed, I proceeded to then divide through the hilum using the electrocautery spatula until I reach the interface with the gallbladder wall and the liver bed. There was note of ind urated and inflamed fatty areolar tissue in the area. I incised the peritoneum with the gallbladder the electrocautery and proceeded to define a plane of dissection between the gallbladder wall and the liver bed with a combination of blunt dissection with the tip of the spatula and electrocautery. I the gallbladder off of the liver bed along this well-defined plane until the entire gallbladder was completely and this was retrieved through an endobag through the umbilical incision. I reinserted all ports and re- insufflated I examined the subhepatic space. There was note of good hemostasis. I irrigated and suctioned out the irrigant fluid. I observed all 4 quadrants. There was no evidence of any bowel injury or any bile leak I observed the subhepatic space and wants hemostasis was confirmed, I desufflated the port sites. I then removed all ports under vision with the laparoscope. The umbilical port was removed last The fascia of the umbilical incision was closed with a [id number] Polysorb 0 stitch. Skin closure was achieved on all incisions using Polysorb 4-0 subcuticular running sutures. Steri-Strips and dressings were applied All incisions were infiltrated with Marcaine 0.5% for postop analgesia and the procedure was completed The patient tolerated procedure well. There were no immediate complications. Initial and final counts of sponges and instruments were correct. Estimated blood loss was about 50 cc The patient was extubated without difficulty and transferred to the recovery room with stable vital signs.
[2023-07-25] MEDS: HYDROmorphone HCl 0.5 MG/0.5 ML SYRINGE IVPUSH (13:53)
[2023-07-25] MEDS: oxyCODONE HCl Immed Release 5 MG TABLET PO (14:04)
--- NOTE | 2023-07-25 15:07 | PM.EVENT ---
Event Note Date of Service: 07/25/23 Event Note: seen postop he says he is comfortable and has good pain control stable VS he says he is ready to go home looks well will give patient lunch tray - if he tolerates well, ok to dc home Time Spent With Patient Time: Total time managing care of this patient today ____ minutes.
== END 2023-07-25 16:56 | disposition home or self-care (01) | DRG 263 ==
LOC: HO.ED 11:04 → HO.EDOVER 11:17
PROVIDERS: Internal Medicine; Admitting Provider Surgery; Emergency Provider Emergency Medicine; PCP Nurse Practitioner Family; Visit Provider Surgery
PROC: 0FT44ZZ Resection of Gallbladder, Percutaneous Endoscopic Approach (ICD-10-PCS; CPT 47562; principal; 2023-07-25 11:00)
DX: K80.00 Calculus of gallbladder with acute cholecystitis without obstruction (principal); Z79.899 Other long term (current) drug therapy; Z87.891 Personal history of nicotine dependence
CPT/HCPCS: 47562; 36415; 76705; 80053; 83690; 85027; 88304; 99221; 99285; J0131; J1100; J1170; J1885; J2250; J2270; J2405; J2704; J2795; J3010

== ENCOUNTER → 2023-07-24 07:53 | Outpatient (BNV) | payer BC, SELFPAY | PROVIDERS: Admitting Provider Surgery; Emergency Provider Emergency Medicine; PCP Nurse Practitioner Family; Visit Provider Surgery | DX: K81.0 Acute cholecystitis (principal) | CPT/HCPCS: 47562; 99024; 99222; 99499 ==

== ENCOUNTER 2023-08-15 15:21 | Outpatient (AMB) | payer BC, SELFPAY ==
[2023-08-15 15:25] VITALS: BP 120/66; PULSE 81; O2SAT 97; BMI 30.1
--- NOTE | 2023-08-15 15:25 | A.OFFPC_ITS ---
Vital Signs 08/15/23 15:25 Height 5 ft 11 in Weight 216 lb BMI 30.1 BP 120/66 Blood Pressure Location Rt brachial Position Sitting Pulse 81 Pulse Source Pulse Oximeter Pulse Oximetry (%) 97 Oxygen Delivery Method Room Air Intake Visit Reasons: 6 mo followup Intake Note: Pt is here today for 6 months follow up visit. Allergies No Known Allergies Allergy (Verified 08/15/23 16:43) Medication List - Last Reconciled 08/15/23 by RODERICK Aceves ibuprofen 600 mg PO Q6H PRN losartan 25 mg PO DAILY 90 days ondansetron 4 mg PO Q8H PRN oxycodone-acetaminophen 5-325 mg (Percocet) 1 tab PO Q4-6H PRN Tobacco use date assessed: 08/15/23 Dental Screening Dental Screen Date: 08/15/23 Did you have a dental visit in the last 12 months?: Yes Did you have a dental problem in the last 6 months where you did not have access to dental care?: No Was dental information given to patient?: Patient has dentist HPI 6 mo followup HPI Details HTN: Blood pressure is stable, managed with losartan 25mg. Denies chest pain, shortness of breath, headache, dizziness, and blurred vision. Pt underwent a lap brittanie on 07/24. He reports that he is tolerating a diet and having normal BMs. Denies fever, chills, N/VD, or lap site drainage. [facility] Medical History (Updated 08/15/23 @ 17:13 by RODERICK Aceves) HTN (hypertension) Acute cholecystitis Cervical pain (neck) Genital warts Surgical History Hx laparoscopic cholecystectomy (~07/25/23) Surgical history unknown Social History Housing: Apartment Comment: COUNTS CORRECT Patient Tobacco Use Status: Former Tobacco user Quit Date: 6 months ago Tobacco use type: Cigarette e-Cigarette/Vaping Use: Never Used Second Hand Smoke Exposure: No service: No Current occupational status: employed Current occupation: [employer] Current occupational exposures/hazards: No Cognitive needs: No Hearing needs: No Vision needs: Yes Questionnaire PHQ-9 Over the last 2 weeks, how often have you been bothered by any of the following problems? 1. Little interest or pleasure in doing things: not at all 2. Feeling down, depressed, or hopeless: not at all 3. Trouble falling or staying asleep, or sleeping too much: several days 4. Feeling tired or having little energy: several days 5. Poor appetite or overeating: not at all 6. Feeling bad about yourself - or that you are a failure or have let yourself or your family down: not at all 7. Trouble concentrating on things, such as reading the newspaper or watching television: not at all 8. Moving or speaking so slowly that other people could have noticed. Or the opposite - being so fidgety or restless that you have been moving around a lot more than usual: not at all 9. Thoughts that you would be better off or of hurting yourself in some way: not at all Total score: 2 Depression Screening Interpretation: Negative Depression Screening Done: Yes 69052 - PHQ-9 Billing: Yes Source: Developed by Drs. Dalton Gaytan, Monica Martinez, Jacoby Hughes and colleagues, with an educational jenifer from [employer]. Thrive Questionnaire Date Thrive assessed: 08/15/23 I am a: Patient What is your living situation today?: I have a steady place to live Within the past 12 months, did the food you bought not last and you didn't have the money to get more?: Never true Within the past 12 months, did you worry whether your food would run out before you got money to buy more?: Never true Do you have trouble paying for medicines?: No Do you have trouble getting transportation to medical appointments?: No Do you have trouble paying your heating and electricity bill?: No Do you have trouble taking care of your child, family member or friend?: No Do you have trouble with day-to-day activities such as bathing, preparing meals, shopping, managing finances, etc.?: No Are you currently unemployed and looking for a job?: No Are you interested in more education?: No Please select the resources that you would like help with: None THRIVE Score: 0 AUDIT C Alcohol Use Questionnaire (AUDIT-C) 1. How often do you have a drink containing alcohol?: Monthly or less 2. How many drinks containing alcohol do you have on a typical day when you are drinking?: 1 or 2 3. How often do you have six or more drinks on one occasion?: Never Total Score: 1 SIRISHA-7 AMB Questionnaire SIRISHA-7 Date SIRISHA - 7 assessed: 08/15/23 Feeling nervous, anxious, or on edge: 0 = Not at all Not being able to stop or control worryin = Not at all Worrying too much about different things: 0 = Not at all Trouble relaxin = Several days Being so restless that it is hard to sit still: 0 = Not at all Becoming easily annoyed or irritable: 0 = Not at all Feeling afraid as if something awful might happen: 0 = Not at all Total SIRISHA-7 score (0-4 normal; 5-9 mild; 10-14 moderate; 15-21 severe): 1 Source: Developed by Drs. Dalton Gaytan, Monica Martinez, Jacoby Hughes and colleagues, with an educational jenifer from [employer]. SIRISHA-7 Assessment Billing SIRISHA-7 Assessment Tool: SIRISHA-7 Assessment 96971 Review of Systems Const Reports as per HPI Physical exam (Primary Care) Vital Signs: Last Vital Signs Pulse 81 08/15/23 15:25 BP 120/66 08/15/23 15:25 Pulse Ox 97 08/15/23 15:25 Oxygen Delivery Method Room Air 08/15/23 15:25 BMI result Body Mass Index 30.1 Tobacco/Smoking Status: Tobacco use Status Tobacco use date assessed 08/15/23 08/15/23 15:29 Patient Tobacco Use Status Former Tobacco user 08/15/23 15:29 Tobacco use type Cigarette 08/15/23 15:29 e-Cigarette/Vaping Use Never Used 08/15/23 15:29 PHQ-9: PHQ-9 Score PHQ-9: Total score 2 08/15/23 15:45 Depression Screening Interpretation: Negative Thrive Assessment: Date of Thrive Assessment Date Thrive assessed 08/15/23 08/15/23 15:30 Const General: cooperative Orientation/consciousness: patient oriented x3 Neck Neck: Yes normal visual inspection, Yes full ROM and No lymphadenopathy Resp Effort & Inspection: normal respiratory effort Auscultation: clear to auscultation bilaterally Cardio Rate: regular rate Rhythm: regular rhythm Heart sounds: S1 normal heart sound present and S2 normal heart sound present Skin Other: 4 lap sites to abdomen, intact, well approximated, no signs of infection, bs present, no tenderness with palpation Neuro General: patient oriented x3 Psych Appearance: grossly normal Mental Status: mental status grossly normal Speech and movement: Normal speech and movement present Affect: normal affect Attitude: cooperative Thought process: Normal thought process present Thought content: Normal thought content present Insight: Good insight present (Psych) Judgement: Good judgement present (Psych) Assessment and Plan Assessment & Plan (1) Acute cholecystitis: Code(s): K81.0 - Acute cholecystitis Plan: tolerating diet (2) HTN (hypertension): Code(s): I10 - Essential (primary) hypertension Plan: stable Plan The patient agreed to the use of a medical data analyst for this encounter. Scribed for RODERICK Antony by Radha Mix medical data analyst, on 08/15/2023 at 15:45 EST. Coding Level of Care Code Est Pt Level 3 (73162) Diagnoses Acute cholecystitis K81.0 HTN (hypertension) I10 Additional Codes SIRISHA-7 Assessment Billing - SIRISHA-7 Assessment Tool: SIRISHA-7 Assessment 78182 ([id number])
== END 2023-08-15 16:33 | disposition home or self-care (01) ==
PROVIDERS: PCP Nurse Practitioner Family; Visit Provider Nurse Practitioner Family
DX: K81.0 Acute cholecystitis (principal); I10 Essential (primary) hypertension
CPT/HCPCS: 99213

== ENCOUNTER 2023-08-23 13:05 | Outpatient (AMB) | payer BC, SELFPAY ==
--- NOTE | 2023-08-23 13:35 | MHC.OFFVIS ---
Vital Signs 08/23/23 13:36 Height 5 ft 11 in Weight 216 lb BMI 30.1 BP 124/84 Blood Pressure Location Rt brachial Position Sitting Pulse 80 Intake Visit Reasons: s/p Lap cholecystectomy Intake Note: This patient presents for a post-op assessment status post Lap cholecystectomy. Pt c/o: reports no complaints pertaining to surgery. Surgery date: 07/25/2023 [employer] Supervisor Required: No Accompanied by: Self / Same As Patient Allergies No Known Allergies Allergy (Verified 08/23/23 13:40) HPI HPI s/p Lap cholecystectomy: Details: 47-year-old male here for postop visit. He underwent laparoscopic cholecystectomy as an inpatient for acute cholecystitis last 07/25/2023. He tolerated procedure well. He currently feels well and denies GI complaints. [facility] Medical History HTN (hypertension) Acute cholecystitis Cervical pain (neck) Genital warts Surgical History Hx laparoscopic cholecystectomy (~07/25/23) Surgical history unknown Social History Housing: Apartment Comment: COUNTS CORRECT Patient Tobacco Use Status: Former Tobacco user Tobacco use type: Cigarette e-Cigarette/Vaping Use: Never Used Second Hand Smoke Exposure: No service: No Current occupational status: employed Current occupation: [employer] Current occupational exposures/hazards: No Cognitive needs: No Hearing needs: No Vision needs: Yes Review of Systems Const Denies chills and Denies fever(s) Card Denies chest pain, Denies dyspnea and Denies dyspnea on exertion Resp Denies cough, Denies dyspnea and Denies dyspnea on exertion GI Denies hematochezia and Denies change in bowel habits Denies hematuria and Denies difficulty urinating Musc Denies back pain and Denies limited range of motion Neuro Denies focal weakness and Denies convulsions Psych Denies depression and Denies mood swings Physical Exam Vital Signs: BMI result Body Mass Index 30.1 Const General: comfortable and no acute distress Eyes Other: Anicteric sclerae GI Other: All incisions clean and dry and well healed Palpation (GI): Soft to palpation, not firm, nontender and no guarding Assessment & Plan Assessment & Plan (1) Acute cholecystitis: Code(s): K81.0 - Acute cholecystitis Category: Medical Plan: Status post laparoscopic cholecystectomy. He is doing very well. All incisions are clean and dry. His path report shows chronic Arnold is ready cholecystitis. He was advised to avoid lifting anything more than 15 lb for another week. He can follow up on a p.r.n. basis. Coding Level of Care Code Global (47324) Diagnoses Acute cholecystitis K81.0
[2023-08-23 13:36] VITALS: BP 124/84; PULSE 80; BMI 30.1
== END 2023-08-23 14:10 | disposition home or self-care (01) ==
PROVIDERS: PCP Nurse Practitioner Family; Visit Provider Surgery
DX: K81.0 Acute cholecystitis (principal)
CPT/HCPCS: 99024

== ENCOUNTER → 2023-08-23 13:05 | Outpatient (BNVA) | payer BC, SELFPAY | PROVIDERS: PCP Nurse Practitioner Family; Visit Provider Surgery ==

== ENCOUNTER 2024-01-18 08:26 | Outpatient (REF) | payer BC, SELFPAY ==
[2024-01-18 09:52] LABS: MANUAL DIFF FLAG NO
[2024-01-18 10:05] LABS: Appearance Urine Clear; Color Urine Yellow; Glucose Urine UA Negative (Negative); Leukocyte Esterase Urine Negative (Negative); Nitrite Urine Negative (Negative); PH 5.5 (5.0-9.0); Urine Blood Negative (Negative); Urine Ketones Negative (Negative); Urine Protein Negative (Neg-Trace)
[2024-01-18 10:06] LABS: Basophils Absolute Auto 0.1 X10*3/uL (0.0-0.2); Basophils Percent Auto 1.1 % (0-2); Eosinophils Absolute Auto 0.5 X10*3/uL (0.0-0.4); Eosinophils Percent Auto 9.7 % (0-4); Hematocrit 45.4 % (42.0-52.0); Hemoglobin 15.5 g/dl (14.0-18.0); Imm Gran Abs Auto 0.01 X10*3/uL (0.00-0.03); Imm Gran Pct Auto 0.2 % (0.0-0.4); Lymphocytes Absolute Auto 1.9 X10*3/uL (1.2-4.9); Lymphocytes Percent Auto 33.8 % (20-40); Mean Corpuscular HGB Conc 34.1 g/dl (31.0-36.0); Mean Corpuscular Hemoglobin 29.9 pg (27.0-33.0); Mean Corpuscular Volume 87.6 fL (80.0-98.0); Mean Platelet Volume 10.4 fL (9.4-12.4); Monocytes Absolute Auto 0.5 X10*3/uL (0.1-1.2); Monocytes Percent Auto 9.1 % (2-11); Neutrophils Absolute Auto 2.5 x10*3/uL (2.0-8.3); Neutrophils Percent Auto 46.1 % (45-73); Platelet Count 324 X10*3/uL (160-400); Red Blood Count 5.18 X10*6/uL (4.60-5.80); White Blood Count 5.5 X10*3/uL (4.8-10.8)
[2024-01-18 10:52] LABS: Alanine Aminotransferase 48 U/L (0-40); Albumin Level 4.2 g/dL (3.5-5.0); Alkaline Phosphatase 61 U/L (39-117); Anion Gap 12 (12-20); Aspartate Amino Transferase 28 U/L (5-37); Bilirubin Total 0.8 mg/dL (0.0-1.0); Blood Urea Nitrogen 10 mg/dL (9-16); Calcium 10.3 mg/dL (8.4-10.2); Carbon Dioxide 29 mmol/L (22-29); Chloride 106 mmol/L (96-108); Cholesterol 185 mg/dL (<200); Estimated Glomerular Filt Rate > 60; Glucose Fasting 101 mg/dL (60-99); HDL Cholesterol 46 mg/dL (>40); LDL Cholesterol Calculated 120 mg/dL (<100); Potassium 4.3 mmol/L (3.3-5.1); Sodium 143 mmol/L (135-145); Total Protein 7.6 g/dL (6.5-8.0); Triglycerides 97 mg/dL (<150)
[2024-01-18 10:54] LABS: TSH reflex Free T4 1.89 uIU/mL (0.32-4.0)
== END 2024-01-18 08:27 | disposition home or self-care (01) ==
LOC: HO.HMGCLDS 08:26
PROVIDERS: PCP Nurse Practitioner Family; Visit Provider Nurse Practitioner Family
DX: Z00.00 Encounter for general adult medical examination without abnormal findings (principal); I10 Essential (primary) hypertension
CPT/HCPCS: 36415; 80053; 80061; 81003; 84443; 85025

== ENCOUNTER 2024-09-10 13:44 | Outpatient (AMB) | payer BC, SELFPAY ==
[2024-09-10 13:49] VITALS: BP 130/80; PULSE 78; O2SAT 98; BMI 31.4
--- NOTE | 2024-09-10 13:49 | MHC.PC.OV ---
Vital Signs 09/10/24 13:49 Height 5 ft 11 in Weight 225 lb BMI 31.4 BP 130/80 Blood Pressure Location Lt brachial Position Sitting Pulse 78 Pulse Source Pulse Oximeter Pulse Oximetry (%) 98 Oxygen Delivery Method Room Air Intake Visit Reasons: BP prescription review [employer] Flake Miller Required: No Allergies No Known Allergies Allergy (Verified 09/10/24 14:38) Medication List - Last Reconciled 09/10/24 by JAISON Aceves- ibuprofen 600 mg PO Q6H PRN ketoconazole 2% 1 appl topical DAILY losartan 25 mg PO DAILY 90 days ondansetron 4 mg PO Q8H PRN oxycodone-acetaminophen 5-325 mg (Percocet) 1 tab PO Q4-6H PRN Tobacco use date assessed: 09/10/24 Dental Screening Dental Screen Date: 09/10/24 Did you have a dental visit in the last 12 months?: Yes Did you have a dental problem in the last 6 months where you did not have access to dental care?: No Was dental information given to patient?: Patient has dentist HPI BP prescription review HPI Details Chief Complaint The patient presents with headaches, blurred vision, and dizziness. History of Present Illness The patient is a 49-year-old male presenting with headaches, blurred vision, and dizziness. The headaches have been persistent, and the patient reports associated blurred vision and dizziness. The patient also reports erythema on the forehead, particularly where the hat meets the head, which appears as small macular erythematous areas. The erythema is suspected to be related to contact with the hat, and ketoconazole has been recommended for treatment. Social History Health Maintenance Review of Systems - Neurological: Reports headaches, blurred vision, and dizziness. Physical Exam General: Cooperative, healthy appearing, comfortable, no acute distress and well developed Orientation: Patient oriented x3 Limitations: No limitations Head: Discoloration to the top of the forehead, looks like macular small erythema Ears: Hearing grossly normal bilaterally Nose: Normal external nose present Face and sinus: Normal facial exam Eyes: Bird vision reported Neck: Normal visual inspection and Yes full ROM Respiratory: Normal respiratory effort and able to speak in complete sentences. Clear to auscultation bilaterally Cardiovascular: Regular rate and rhythm. Normal S1 and S2 GI: Normal to inspection. Soft to palpation and nontender Skin: Discoloration to the top of the forehead, looks like macular small erythema Neuro: Patient oriented x3 Extremities: Normal to inspection Results Plan The patient will continue with losartan as his blood pressure is stable at home. Ketoconazole has been prescribed for the erythema on the forehead, suspected to be related to contact with the hat. A physical exam is scheduled for November to further evaluate the patient's condition. Discussion Notes I discussed with the patient the continuation of losartan for blood pressure management, as he is stable at home. We also talked about the use of ketoconazole for the erythema on his forehead, which is likely related to his hat. A follow-up physical exam is planned for November to monitor his condition. Patient Instructions - Continue taking losartan as prescribed. - Apply ketoconazole to the affected area on the forehead as directed. - Attend the scheduled physical exam in November. [facility] Medical History HTN (hypertension) Acute cholecystitis Cervical pain (neck) Genital warts Surgical History Hx laparoscopic cholecystectomy (~07/25/23) Surgical history unknown Social History Housing: Apartment Comment: COUNTS CORRECT Patient Tobacco Use Status: Former Tobacco user Tobacco use type: Cigarette e-Cigarette/Vaping Use: Never Used Second Hand Smoke Exposure: No service: No Current occupational status: employed Current occupation: [employer] Current occupational exposures/hazards: No Cognitive needs: No Hearing needs: No Vision needs: Yes Questionnaire PHQ-9 Over the last 2 weeks, how often have you been bothered by any of the following problems? 1. Little interest or pleasure in doing things: not at all 2. Feeling down, depressed, or hopeless: not at all 3. Trouble falling or staying asleep, or sleeping too much: not at all 4. Feeling tired or having little energy: not at all 5. Poor appetite or overeating: not at all 6. Feeling bad about yourself - or that you are a failure or have let yourself or your family down: not at all 7. Trouble concentrating on things, such as reading the newspaper or watching television: not at all 8. Moving or speaking so slowly that other people could have noticed. Or the opposite - being so fidgety or restless that you have been moving around a lot more than usual: not at all 9. Thoughts that you would be better off or of hurting yourself in some way: not at all Total score: 0 Depression Screening Interpretation: Negative Depression Screening Done: Yes 75644 - PHQ-9 Billing: Yes Source: Developed by Drs. Dalton Gaytan, Mnoica Martinez, Jacoby Hughes and colleagues, with an educational jenifer from [employer]. Thrive Questionnaire Date Thrive assessed: 09/10/24 I am a: Patient What is your living situation today?: I have a steady place to live Within the past 12 months, did the food you bought not last and you didn't have the money to get more?: Never true Within the past 12 months, did you worry whether your food would run out before you got money to buy more?: Never true Do you have trouble paying for medicines?: No Do you have trouble getting transportation to medical appointments?: No Do you have trouble paying your heating and electricity bill?: No Do you have trouble taking care of your child, family member or friend?: No Do you have trouble with day-to-day activities such as bathing, preparing meals, shopping, managing finances, etc.?: No Are you currently unemployed and looking for a job?: No Are you interested in more education?: No Please select the resources that you would like help with: None Currently or been in a relationship where the following occur: No concerns reported THRIVE Score: 0 AUDIT C Alcohol Use Questionnaire (AUDIT-C) 1. How often do you have a drink containing alcohol?: Monthly or less 2. How many drinks containing alcohol do you have on a typical day when you are drinking?: 1 or 2 3. How often do you have six or more drinks on one occasion?: Never Total Score: 1 Score Reviewed/Action Taken: Yes SIRISHA-7 AMB Questionnaire SIRISHA-7 Date SIRISHA - 7 assessed: 09/10/24 Feeling nervous, anxious, or on edge: 0 = Not at all Not being able to stop or control worryin = Not at all Worrying too much about different things: 0 = Not at all Trouble relaxin = Not at all Being so restless that it is hard to sit still: 0 = Not at all Becoming easily annoyed or irritable: 0 = Not at all Feeling afraid as if something awful might happen: 0 = Not at all Total SIRISHA-7 score (0-4 normal; 5-9 mild; 10-14 moderate; 15-21 severe): 0 Source: Developed by Drs. Dalton Gaytan, Monica Martinez, Jacoby Hughes and colleagues, with an educational jenifer from [employer]. SIRISHA-7 Assessment Billing SIRISHA-7 Assessment Tool: SIRISHA-7 Assessment 57175 Physical exam (Primary Care) Vital Signs: Last Vital Signs Pulse 78 09/10/24 13:49 BP 130/80 09/10/24 13:49 Pulse Ox 98 09/10/24 13:49 Oxygen Delivery Method Room Air 09/10/24 13:49 BMI result Body Mass Index 31.4 Tobacco/Smoking Status: Tobacco use Status Tobacco use date assessed 09/10/24 09/10/24 13:53 Patient Tobacco Use Status Former Tobacco user 09/10/24 13:49 Tobacco use type Cigarette 09/10/24 13:49 e-Cigarette/Vaping Use Never Used 09/10/24 13:49 PHQ-9: PHQ-9 Score PHQ-9: Total score 0 09/10/24 14:30 Depression Screening Interpretation: Negative Thrive Assessment: Date of Thrive Assessment Date Thrive assessed 09/10/24 09/10/24 13:53 Currently or been in a relationship where the following occur: No concerns reported Coding Level of Care Code Est Pt Level 3 (32646) Diagnoses HTN (hypertension) I10 Tinea B35.9 Additional Codes SIRISHA-7 Assessment Billing - SIRISHA-7 Assessment Tool: SIRISHA-7 Assessment 54855 ([id number]) PHQ-9 - 31938 - PHQ-9 Billing: Yes ([id number]) Assessment & Plan Assessment & Plan (1) HTN (hypertension): Code(s): I10 - Essential (primary) hypertension Category: Medical (2) Tinea: Code(s): B35.9 - Dermatophytosis, unspecified Category: Medical Plan . Orders: Orders Complete Blood Count Auto Diff Today I10 - Essential (primary) hypertension UA CC w/rflx Micro + Cult Today I10 - Essential (primary) hypertension Lipid Panel Today I10 - Essential (primary) hypertension Prostate Specific Antigen Scr Today Z12.5 - Encounter for screening for malignant neoplasm of prostate Comprehensive [place]. Panel Fast Today I10 - Essential (primary) hypertension TSH reflex Free T4 Today I10 - Essential (primary) hypertension Medications: New ketoconazole 2% 1 appl topical DAILY 30 grams 0RF Refilled losartan 25 mg PO DAILY 90 tabs 1RF 90 days
== END 2024-09-10 15:26 | disposition home or self-care (01) ==
LOC: HO.HMCC 13:45
PROVIDERS: PCP Nurse Practitioner Family; Visit Provider Nurse Practitioner Family
DX: I10 Essential (primary) hypertension (principal); B35.9 Dermatophytosis, unspecified

== ENCOUNTER → 2024-09-10 13:44 | Outpatient (BNVA) | payer BC, SELFPAY | PROVIDERS: PCP Nurse Practitioner Family; Visit Provider Nurse Practitioner Family | DX: I10 Essential (primary) hypertension (principal); B35.9 Dermatophytosis, unspecified | CPT/HCPCS: 96127 ==

== ENCOUNTER 2025-01-07 10:33 | Outpatient (REF) | payer BC, SELFPAY ==
[2025-01-07 11:41] LABS: MANUAL DIFF FLAG NO
[2025-01-07 12:31] LABS: Hematocrit 45.7 % (42.0-52.0); Hemoglobin 15.1 g/dl (14.0-18.0); Imm Gran Abs Auto 0.00 X10*3/uL (0.00-0.03); Imm Gran Pct Auto 0.0 % (0.0-0.4); Lymphocytes Absolute Auto 1.5 X10*3/uL (1.2-4.9); Mean Corpuscular HGB Conc 33.0 g/dl (31.0-36.0); Mean Corpuscular Hemoglobin 28.7 pg (27.0-33.0); Mean Corpuscular Volume 86.7 fL (80.0-98.0); NRBC Abs Auto 0.000 X10*3/uL (0.0-0.012); NRBC Pct Auto 0.0 /100WBC (0.0-0.2); Platelet Count 299 X10*3/uL (160-400); Red Blood Count 5.27 X10*6/uL (4.60-5.80); White Blood Count 5.0 X10*3/uL (4.8-10.8)
[2025-01-07 12:50] LABS: Alanine Aminotransferase 46 U/L (0-40); Albumin Level 4.5 g/dL (3.5-5.0); Anion Gap 12 (12-20); Aspartate Amino Transferase 26 U/L (5-37); Blood Urea Nitrogen 10 mg/dL (9-16); Calcium 9.4 mg/dL (8.4-10.2); Carbon Dioxide 29 mmol/L (22-29); Chloride 106 mmol/L (96-108); Estimated Glomerular Filt Rate > 60; Potassium 4.0 mmol/L (3.3-5.1); Sodium 143 mmol/L (135-145); Total Protein 7.8 g/dL (6.5-8.0)
[2025-01-07 13:13] LABS: Alkaline Phosphatase 72 U/L (39-117)
== END 2025-01-07 10:34 | disposition home or self-care (01) ==
LOC: HO.LAB 10:33
PROVIDERS: PCP Nurse Practitioner Family; Visit Provider Nurse Practitioner
DX: Z01.818 Encounter for other preprocedural examination (principal); K21.9 Gastro-esophageal reflux disease without esophagitis; Z79.899 Other long term (current) drug therapy
CPT/HCPCS: 36415; 80053; 85025

== ENCOUNTER 2025-01-07 10:33 | Outpatient (AMB) | payer BC, SELFPAY ==
--- NOTE | 2025-01-07 10:41 | MHC.OFFVIS ---
Vital Signs 01/07/25 10:50 Height 5 ft 11 in Weight 222 lb 10.67 oz BMI 31.1 BP 140/85 H Blood Pressure Location Rt brachial Position Sitting Pulse 79 Intake Visit Reasons: colo screening Intake Note: New patient in office today for colonoscopy screening. CC: Patient c/o GERD and states that he takes TUMS for it. Onset of GERD about 5 years ago per patient. Denies other GI symptoms today. 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 He is referred by Jonathan Elizabeth. PMX Hypertension Genital warts Neck pain Transaminitis * SURGICAL HISTORY Cholecystectomy * ALLERGIES: NKDA * [place] LABS: none TODAY'S VISIT This is his 1st colonoscopy. He denies any bowel or upper GI problems. He denies any cardiac or respiratory problems. There are no infectious disease problems. There is no known family history of colon cancer or polyps. [facility] Medical History Physical exam Screening for prostate cancer Screening for colon cancer HTN (hypertension) Acute cholecystitis Cervical pain (neck) Genital warts Surgical History Hx laparoscopic cholecystectomy (~07/25/23) Surgical history unknown Social History Housing: Apartment Alcohol intake: current Comment: COUNTS CORRECT Patient Tobacco Use Status: Former Tobacco user Tobacco use type: Cigarette e-Cigarette/Vaping Use: Never Used Second Hand Smoke Exposure: No service: No Current occupational status: employed Current occupation: [employer] service Current occupational exposures/hazards: No Cognitive needs: No Hearing needs: No Vision needs: Yes Review of Systems Const Denies fatigue, Denies fever(s), Denies night sweats, Denies poor appetite and Denies weight loss Eyes Details: glasses Reports requires corrective lenses ENT Reports Normal hearing present, Denies dental pain, Denies dysphagia, Denies hearing loss, Denies mouth pain, Denies odynophagia, Denies throat swelling, Denies tongue swelling and Reports other (Dentition adequate) Card Reports no additional complaints Resp Reports no additional complaints GI Details: Denies abdominal pain, Denies melena, Denies bloating, Denies hematochezia, Denies constipation, Denies GI cramping, Denies dysphagia, Denies excessive flatus, Denies early satiety, Denies heartburn, Denies diarrhea, Denies nausea, Denies odynophagia, Denies vomiting and Denies hematemesis Skin/Breast Denies pruritus, Denies lesions, Denies rash and Denies jaundice Neuro Reports Normal hearing present and Denies Abnormal speech present Endo Denies fatigue Aller/Immun Denies throat swelling and Denies tongue swelling Physical Exam Vital Signs: Last Vital Signs Pulse 79 01/07/25 10:50 BP 140/85 H 01/07/25 10:50 BMI result Body Mass Index 31.1 Const General: cooperative, no acute distress, well developed and well groomed Nutritional Appearance: well nourished and obese Orientation/consciousness: oriented to person, oriented to place and oriented to time Limitations: No language barrier HEENT Head: Yes normocephalic and Yes atraumatic Eyes General: appearance normal, both eyes and all related structures Pupils: Equal, round and reactive pupils present Neck Neck: Yes normal visual inspection and Yes no lymphadenopathy Thyroid: Thyroid normal Resp Effort & Inspection: normal respiratory effort and able to speak in complete sentences Auscultation: clear to auscultation bilaterally Cardio Rate: regular rate Rhythm: regular rhythm Heart sounds: Normal, physiologic split S2 sound present Peripheral pulses: radial pulses present and posterior tibial pulses present GI Inspection: No distended, No Abdominal panniculus present and Yes obesity Palpation (GI): Soft to palpation, nontender, no guarding, not rigid and No hepatosplenomegaly present Percussion: Yes normal to percussion Auscultation: normal bowel sounds Rectal Exam - Male: Yes deferred Skin General skin exam: no rashes or lesions noted, turgor normal, skin not dry, no jaundice, No spider nevi and no striae Rashes: no rashes Nails: normal Neuro General: oriented to person, oriented to place and oriented to time Cranial nerves: Yes Equal, round and reactive pupils present and Yes Normal hearing present Speech: No Abnormal speech present Extrem General: Yes normal to inspection, No clubbing, No cyanosis and No edema Psych Appearance: grossly normal and well kempt Mental Status: mental status grossly normal Speech and movement: Normal speech and movement present Affect: normal affect Attitude: cooperative Thought process: Normal thought process present and not confabulating Thought content: Normal thought content present Insight: Good insight present (Psych) Judgement: Good judgement present (Psych) Assessment & Plan Assessment & Plan (1) Pre-op examination: Code(s): Z01.818 - Encounter for other preprocedural examination Category: Medical Plan This is his 1st colonoscopy. He denies any bowel or upper GI problems. He denies any cardiac or respiratory problems. There are no infectious disease problems. There is no known family history of colon cancer or polyps. Orders: Orders Comprehensive Met. Panel Today Z01.818 - Encounter for other preprocedural examination Complete Blood Count Auto Diff Today Z01.818 - Encounter for other preprocedural examination Referrals GI Procedure Notification Z01.818 - Encounter for other preprocedural examination Coding Level of Care Code New Pt Level 3 (25581) Diagnoses Pre-op examination Z01.818
[2025-01-07 10:50] VITALS: BP 140/85; PULSE 79; BMI 31.1
== END 2025-01-07 11:25 | disposition home or self-care (01) ==
LOC: HO.HGI 10:34
PROVIDERS: PCP Nurse Practitioner Family; Visit Provider Nurse Practitioner
DX: Z01.818 Encounter for other preprocedural examination (principal); Z12.11 Encounter for screening for malignant neoplasm of colon
CPT/HCPCS: S0285